=== PATIENT | male | born 1980 | race Caucasian/White ===

== ENCOUNTER 2018-06-18 01:52 | Observation (INO) | payer MEDICARE, SELFPAY ==
[2018-06-18] VITALS (13 sets, daily range): BP systolic 96–140; BP diastolic 50–79; PULSE 58–84; RESP 16–18; TEMP 36.6–37.2; O2SAT 93–100; BMI 32.4; BMI 32.5
--- NOTE | 2018-06-18 03:07 | PCM.HP.STD ---
Problem List (1) Chest pain Status: Acute Qualifiers: Chest pain type: unspecified Qualified Code(s): R07.9 - Chest pain, unspecified (2) Cardiac enzymes elevated Status: Acute (3) HLD (hyperlipidemia) Status: Chronic Qualifiers: Hyperlipidemia type: pure hypercholesterolemia Qualified Code(s): E78.00 - Pure hypercholesterolemia, unspecified; E78.0 - Pure hypercholesterolemia (4) Diabetes mellitus, type II Status: Chronic Qualifiers: Diabetes mellitus buttermaker helper insulin use: without buttermaker helper use Diabetes mellitus complication status: with unspecified complications Qualified Code(s): E11.8 - Type 2 diabetes mellitus with unspecified complications (5) LAM (nonalcoholic steatohepatitis) Status: Chronic (6) Anxiety and depression Status: Chronic (7) History of pericarditis Status: Chronic (8) CAD (coronary artery disease) Status: Chronic Qualifiers: Coronary Disease-Associated Artery/Lesion type: unspecified vessel or lesion type [place] vs. transplanted heart: unspecified whether [place] or transplanted heart Associated angina: angina presence unspecified Qualified Code(s): I25.10 - Atherosclerotic heart disease of [place] coronary artery without angina pectoris (9) Tobacco use Status: Acute History of Present Illness Date of Admission: 06/18/18 Chief Complaint: Chest pain The patient is a 37 y/o M w/ PMHx: HLD, SONIA with ~ sleep study 3 months prior unremarkable not using CPAP, Obesity, Tobacco use, LAM, Anxiety and Depression/?Bipolar disorder, Hx Pericarditis, CAD w/ no PCI history, Mild-Moderate Carotid Disease reported per patient who presents to the [facility] as direct admission from [facility] ED on 06/18/18 with history of onset at approximately 9:35 PM primarily right sided squeezing chest discomfort which progressively worsened while laying watching sports rated 10 out of 10 with associated nausea without emesis, dyspnea, diaphoresis as well as radiation of the discomfort into his throat with concurrent intermittent jabbing sensation with self administration NG w/ improvement to 03/26 and upon [facility] transition 01/24. He notes history of coronary disease w/ comment per his Lodging Manager Dr. Javier prior that he should be considered for PCI x 2; however, decision eventually for medication management and recently transitioned to Dr. Gomez. He also notes that he was supposed to have a cardiac stress test this upcoming Tuesday secondary to recent carotid ultrasounds which demonstrated mild disease. OSH ED evaluation included T 37.6, heart rate 88, BP 117/74, respiratory rate 20, 96% on room air, CBC with W BC 12.6, hemoglobin 18.5, platelet 186 without shift, BMP with sodium 136, potassium 4.1, chloride 99, bicarb 24, BUN/Cr 15/0.81, glucose 255, troponin 0 0.051, chest x-ray unremarkable, EKG with sinus rhythm with noted similar appearance to prior EKGs with diffuse mild ST segment elevation and J waves in V3 and V4 consistent with early repolarization pattern noted as stated on prior EKGs. At outside hospital patient was administered aspirin therapy. Past Medical History Past Medical History (Chronic Problems): Chronic Problems HLD (hyperlipidemia) (Chronic) Diabetes mellitus, type II (Chronic) LAM (nonalcoholic steatohepatitis) (Chronic) Anxiety and depression (Chronic) History of pericarditis (Chronic) CAD (coronary artery disease) (Chronic) Allergies Iodinated Contrast- Oral and IV Dye [CONTRASTS] Adverse Reaction (Verified 06/18/18 01:58) Nausea/Vom/Diarrhea SHRIMP Allergy (Uncoded 04/01/17 10:14) Swelling PLASTIC TAPE ADHESIVE Adverse Reaction (Uncoded 04/01/17 10:14) Rash Home Medications: Ambulatory Orders Medication Instructions Recorded Lorazepam [Ativan] 0.5 mg PO QHS 05/21/14 Vilazodone Hydrochloride [Viibryd] 40 mg PO DAILY 05/21/14 Lamotrigine [Lamictal] 150 mg PO QHS 02/20/16 Metformin HCl [Glucophage] 500 mg PO BIDCM 02/20/16 Nitroglycerin [Nitrostat] 0.4 mg SUBLINGUAL Q5M PRN 02/20/16 glipiZIDE [Glucotrol] 10 mg PO DAILY@0730 02/20/16 Albuterol Inhaler [Ventolin Hfa] 1 - 2 puff INHALATION Q4H PRN PRN 06/25/16 Trazodone HCl 50 - 100 mg PO QHS 04/01/17 Aspirin [Aspirin, Baby] 81 mg PO DAILY@0800 06/18/18 Ibuprofen 600 mg PO Q6H PRN 06/18/18 Insulin Detemir [Levemir] 18 unit SQ BREAKFAST 06/18/18 Simvastatin [Zocor] 10 mg PO QHS 06/18/18 Surgical History: - - Right wrist surgery, right knee arthroscopic surgery and meniscal repair, cholecystectomy, appendectomy. Psychiatric History: Anxiety, Depression Lives: Spouse/ Significant Other, With Family Smoking Status: Current every day smoker Tobacco Use: Cigarettes - Cigarette tobacco usage 1-1.5 pack per day since youth. Alcohol: None Drugs: None - *Family History Maternal History Items: - - Patient notes a maternal family history of psychiatric disease as well as heart disease. Paternal History Items: - - Patient with a paternal family history of cancer, heart disease with [place] history, diabetes. Review of Systems Constitutional: Reports: Fatigue. Denies: Chills, Fever, Weight Change HEENT: Denies: Head Aches, Sinus Congestion, Sinus Drainage Cardiovascular: Reports: Chest Pain, Chest Pressure. Denies: Edema, Light Headedness, Orthopnea, Palpitations, Syncope Respiratory: Reports: Shortness of Breath. Denies: Cough, Shortness of breath at rest, Shortness of breath upon exertion, Sputum production, Wheezing Gastrointestinal: Reports: Nausea. Denies: Abdominal Pain, Vomiting Genitourinary: Denies: Dysuria Musculoskeletal: Denies: Joint Pain, Joint Tenderness Skin: Denies: Rash, Wounds Neurological: Denies: Numbness, Tingling, Focal weakness Psychiatric: Reports: Anxiety, Depression. Denies: Homicidal Ideations, Suicidal Ideations Hematologic/ Lymphatic: Denies: Easy Bruising, Easy Bleeding VTE Information - Inpt Only VTE Present on Admission: No VTE Mechan Device Prophylaxis: SCD's VTE Pharm Prophylaxis ordered?: Yes Patient Problems: Active and Suspected Problems Chest pain (Acute) Cardiac enzymes elevated (Acute) Tobacco use (Acute) Subjective: Seated upright in the bed, no acute distress, notes still having discomfort but comfortable appearing. Objective: Physical Examination: General: awake, alert, oriented x 3 and cooperative, seated upright in bed in no apparent distress, notes still having chest discomfort. Skin: normal color, turgor, no icterus, cyanosis. HEENT: AT/NC, EOMI, PERRLA, MMM, no carotid bruits or JVD noted. Lungs: CTA bilaterally, moderate effort, mild decrease BL bases, no rales, ronchi or wheezing. Heart: Regular rate and rhythm; no gallop, rub audible. Abdomen: soft, obese, NTTP, ND, normal BS, no HSM. Extremities: no cyanosis, clubbing, or edema. Neurological: patient awake, alert, oriented x 3; cognitive function intact; pupils equally reactive to light and accomodation; cranial nerves II-XII grossly normal, moving all 4 extremities, no focal deficits, strength mildly globally decreased. Psychiatric: affect appears fatigued, no acute evidence of depressive or anxiety feelings. - Physical Exam Vital Signs Temp Pulse Resp BP Pulse Ox 97.8 F 69 18 140/79 H 97 06/18/18 02:14 06/18/18 02:27 06/18/18 02:14 06/18/18 02:14 06/18/18 02:14 Oxygen Delivery Method Room Air Weight: 226 lb 3.108 oz Body Mass Index (BMI) 32.4 Finger Stick Blood Glucose 149 Laboratory Tests Past 24 Hrs 06/18/18 06/18/18 06/18/18 02:47 02:47 02:47 WBC Pending RBC Pending Hgb Pending Hct Pending MCV Pending MCH Pending MCHC Pending RDW Pending RDW Differential Pending Plt Count Pending Sodium Pending Potassium Pending Chloride Pending Carbon Dioxide Pending Anion Gap Pending BUN Pending Creatinine Pending Est GFR (MDRD) Af Amer Pending Est GFR (MDRD) Non-Af Pending BUN/Creatinine Ratio Pending Glucose Pending Calcium Pending Magnesium Pending Total Bilirubin Pending AST Pending ALT Pending Alkaline Phosphatase Pending Troponin I Pending Total Protein Pending Albumin Pending Triglycerides Pending Cholesterol Pending LDL Cholesterol Pending VLDL Cholesterol Pending HDL Cholesterol Pending Assessment/Plan All Active Problems Chest pain (Acute) Cardiac enzymes elevated (Acute) Tobacco use (Acute) The patient is a 37 y/o M w/ PMHx: HLD, SONIA with ~ sleep study 3 months prior unremarkable not using CPAP, Obesity, Tobacco use, LAM, Anxiety and Depression/?Bipolar disorder, Hx Pericarditis, CAD w/ no PCI history, Mild-Moderate Carotid Disease reported per patient who presents to the [facility] as direct admission from [facility] ED on 06/18/18 with history of onset at approximately 9:35 PM primarily right sided squeezing chest discomfort which progressively worsened while laying watching sports rated 10 out of 10 with associated nausea without emesis, dyspnea, diaphoresis as well as radiation of the discomfort into his throat with concurrent intermittent jabbing sensation with self administration NG w/ improvement to 03/26 and upon [facility] transition 01/24. (1) Chest Pain w/ indeterminate cardiac enzymes: EKG in OSH ED with chronic changes similar to prior, CXR w/ no acute findings, initial trop 0.051. Will admit to PCU, place on a monitored bed to assure no acute myocardial infarction with serial cardiac enzymes and EKGs. Given that patient trop is minimally elevated above baseline level, will plan to continue to trend and if remains similar would continue w/ plan for nuclear stress testing on 06/20/18. If enzyme increases or ongoing pain would plan Cardiology evaluation. ASA, NG, morphine. FLP in AM. Mag pending. (2) Elevated BP without HTN Dx: BP above goal upon presentation to [facility], normal at OSH ED, will continue to monitor, initiate low dose BB given unclear CAD history, PRN agents if needed. Will need to continue to trend and assess if agent needed. (3) CAD: Unclear CAD history, notes was told he may need PCI prior, but has only been medically managed. Will continue home regimen asa, statin, add low dose BB. (4) LAM: Encouraged continued evaluation with his PCP and trending of his enzymes, encouraged continued avoidance of EtOH intake. (5) Hyperlipidemia: Continue home statin regimen. AM FLP. (6) Tobacco Abuse: Encouraged cessation, inpatient consultation per RT, NR as patient notes he could not tolerate avoidance. (7) Obesity: Weight loss and lifestyle changes encouraged. (8) Anxiety and Depression/? Bipolar disorder: Continue home psychiatric regimen. (9) Asthma: Denies COPD history, encourage HOB, IS, PRN albuterol. (10) Patient reported Carotid Disease: Notes recent carotid US with mild disease, no intervention needed per his report. (11) Hx Pericarditis: EKG w/ chronic changes, ESR and CRP pending as noted given atypical presentation. Continue treatment as noted #1. (12) GERD: Famotidine. (13) Hx SONIA: Patient states did not utilize CPAP prior but did have repeat SONIA assessment 3 months ago and states he was told he no longer had sleep apnea. (14) DVT prophylaxis: SCD, Lovenox. Code Visit OBSV E&M: 55998 Initial observation care L3
[2018-06-18 03:13] LABS: Hematocrit 46.6 % (40-54); Mean Corpuscular Hgb 31.6 pg (27.0-32.0); Mean Corpuscular Volume 84.6 fL (80-94); Mean Platelet Vol. 11.1 fl (6.2-12.0); Platelet Count 175 K/mm3 (150-450); RBC Distribution Width CV 12.4 % (11.6-14.6); RBC Distribution Width SD 38.2 fl (35.1-43.9); Red Blood Count 5.51 M/mm3 (4.6-6.2); White Blood Count 9.9 K/mm3 (4.4-11.0)
[2018-06-18 03:17] LABS: Hemoglobin 17.2 g/dl (13.0-16.5); Mean Corp Hgb Conc 36.1 g/gl (32-36); Scan Indicated on CBC? Y/N NO
--- NOTE | 2018-06-18 03:17 | HP.PCM_ITS ---
Problem List (1) Chest pain Status: Acute Qualifiers: Chest pain type: unspecified Qualified Code(s): R07.9 - Chest pain, unspecified (2) Cardiac enzymes elevated Status: Acute (3) HLD (hyperlipidemia) Status: Chronic Qualifiers: Hyperlipidemia type: pure hypercholesterolemia Qualified Code(s): E78.00 - Pure hypercholesterolemia, unspecified; E78.0 - Pure hypercholesterolemia (4) Diabetes mellitus, type II Status: Chronic Qualifiers: Diabetes mellitus terminal worker insulin use: without terminal worker use Diabetes mellitus complication status: with unspecified complications Qualified Code(s) : E11.8 - Type 2 diabetes mellitus with unspecified complications (5) LAM (nonalcoholic steatohepatitis) Status: Chronic (6) Anxiety and depression Status: Chronic (7) History of pericarditis Status: Chronic (8) CAD (coronary artery disease) Status: Chronic Qualifiers: Coronary Disease-Associated Artery/Lesion type: unspecified vessel or lesion type [place] vs. transplanted heart: unspecified whether [place] or transplanted heart Associated angina: angina presence unspecified Qualified Code(s): I25.10 - Atherosclerotic heart disease of [place] coronary artery without angina pectoris (9) Tobacco use Status: Acute History of Present Illness Date of Admission: 06/18/18 Chief Complaint: Chest pain The patient is a 37 y/o M w/ PMHx: HLD, SONIA with ~ sleep study 3 months prior unremarkable not using CPAP, Obesity, Tobacco use, LAM, Anxiety and Depression/ ?Bipolar disorder, Hx Pericarditis, CAD w/ no PCI history, Mild-Moderate Carotid Disease reported per patient who presents to the [facility] as direct admission from [facility] ED on 06/18/18 with history of onset at approximately 9:35 PM primarily right sided squeezing chest discomfort which progressively worsened while laying watching sports rated 10 out of 10 with associated nausea without emesis, dyspnea, diaphoresis as well as radiation of the discomfort into his throat with concurrent intermittent jabbing sensation with self administration NG w/ improvement to 03/26 and upon [facility] transition . He notes history of coronary disease w/ comment per his Admissions Manager Dr. Javier prior that he should be considered for PCI x 2; however, decision eventually for medication management and recently transitioned to Dr. Gomez. He also notes that he was supposed to have a cardiac stress test this upcoming Tuesday secondary to recent carotid ultrasounds which demonstrated mild disease. OSH ED evaluation included T 37.6, heart rate 88, BP 117/74, respiratory rate 20, 96% on room air, CBC with W BC 12.6, hemoglobin 18.5, platelet 186 without shift, BMP with sodium 136, potassium 4.1, chloride 99, bicarb 24, BUN/Cr 15/0.81, glucose 255, troponin 0 0.051, chest x-ray unremarkable, EKG with sinus rhythm with noted similar appearance to prior EKGs with diffuse mild ST segment elevation and J waves in V3 and V4 consistent with early repolarization pattern noted as stated on prior EKGs. At outside hospital patient was administered aspirin therapy. Past Medical History Past Medical History (Chronic Problems): Chronic Problems HLD (hyperlipidemia) (Chronic) Diabetes mellitus, type II (Chronic) LAM (nonalcoholic steatohepatitis) (Chronic) Anxiety and depression (Chronic) History of pericarditis (Chronic) CAD (coronary artery disease) (Chronic) Allergies Iodinated Contrast- Oral and IV Dye [CONTRASTS] Adverse Reaction (Verified 06/18 01:58) Nausea/Vom/Diarrhea SHRIMP Allergy (Uncoded 04/01/17 10:14) Swelling PLASTIC TAPE ADHESIVE Adverse Reaction (Uncoded 04/01/17 10:14) Rash Home Medications: Ambulatory Orders Medication Instructions Recorded Lorazepam [Ativan] 0.5 mg PO QHS 05/21/14 Vilazodone Hydrochloride [Viibryd] 40 mg PO DAILY 05/21/14 Lamotrigine [Lamictal] 150 mg PO QHS 02/20/16 Metformin HCl [Glucophage] 500 mg PO BIDCM 02/20/16 Nitroglycerin [Nitrostat] 0.4 mg SUBLINGUAL Q5M PRN 02/20/16 glipiZIDE [Glucotrol] 10 mg PO DAILY@0730 02/20/16 Albuterol Inhaler [Ventolin Hfa] 1 - 2 puff INHALATION Q4H PRN PRN 06/25/16 Trazodone HCl 50 - 100 mg PO QHS 04/01/17 Aspirin [Aspirin, Baby] 81 mg PO DAILY@0800 06/18/18 Ibuprofen 600 mg PO Q6H PRN 06/18/18 Insulin Detemir [Levemir] 18 unit SQ BREAKFAST 06/18/18 Simvastatin [Zocor] 10 mg PO QHS 06/18/18 Surgical History: - - Right wrist surgery, right knee arthroscopic surgery and meniscal repair, cholecystectomy, appendectomy. Psychiatric History: Anxiety, Depression Lives: Spouse/ Significant Other, With Family Smoking Status: Current every day smoker Tobacco Use: Cigarettes - Cigarette tobacco usage 1-1.5 pack per day since youth. Alcohol: None Drugs: None - *Family History Maternal History Items: - - Patient notes a maternal family history of psychiatric disease as well as heart disease. Paternal History Items: - - Patient with a paternal family history of cancer, heart disease with [place] history, diabetes. Review of Systems Constitutional: Reports: Fatigue. Denies: Chills, Fever, Weight Change HEENT: Denies: Head Aches, Sinus Congestion, Sinus Drainage Cardiovascular: Reports: Chest Pain, Chest Pressure. Denies: Edema, Light Headedness, Orthopnea, Palpitations, Syncope Respiratory: Reports: Shortness of Breath. Denies: Cough, Shortness of breath at rest, Shortness of breath upon exertion, Sputum production, Wheezing Gastrointestinal: Reports: Nausea. Denies: Abdominal Pain, Vomiting Genitourinary: Denies: Dysuria Musculoskeletal: Denies: Joint Pain, Joint Tenderness Skin: Denies: Rash, Wounds Neurological: Denies: Numbness, Tingling, Focal weakness Psychiatric: Reports: Anxiety, Depression. Denies: Homicidal Ideations, Suicidal Ideations Hematologic/ Lymphatic: Denies: Easy Bruising, Easy Bleeding VTE Information - Inpt Only VTE Present on Admission: No VTE Mechan Device Prophylaxis: SCD's VTE Pharm Prophylaxis ordered?: Yes Patient Problems: Active and Suspected Problems Chest pain (Acute) Cardiac enzymes elevated (Acute) Tobacco use (Acute) Subjective: Seated upright in the bed, no acute distress, notes still having discomfort but comfortable appearing. Objective: Physical Examination: General: awake, alert, oriented x 3 and cooperative, seated upright in bed in no apparent distress, notes still having chest discomfort. Skin: normal color, turgor, no icterus, cyanosis. HEENT: AT/NC, EOMI, PERRLA, MMM, no carotid bruits or JVD noted. Lungs: CTA bilaterally, moderate effort, mild decrease BL bases, no rales, ronchi or wheezing. Heart: Regular rate and rhythm; no gallop, rub audible. Abdomen: soft, obese, NTTP, ND, normal BS, no HSM. Extremities: no cyanosis, clubbing, or edema. Neurological: patient awake, alert, oriented x 3; cognitive function intact; pupils equally reactive to light and accomodation; cranial nerves II-XII grossly normal, moving all 4 extremities, no focal deficits, strength mildly globally decreased. Psychiatric: affect appears fatigued, no acute evidence of depressive or anxiety feelings. - Physical Exam Vital Signs Temp Pulse Resp BP Pulse Ox 97.8 F 69 18 140/79 H 97 06/18/18 02:14 06/18/18 02:27 06/18/18 02:14 06/18/18 02:14 06/18/18 02:14 Oxygen Delivery Method Room Air Weight: 226 lb 3.108 oz Body Mass Index (BMI) 32.4 Finger Stick Blood Glucose 149 Laboratory Tests Past 24 Hrs 06/18/18 06/18/18 06/18/18 02:47 02:47 02:47 WBC Pending RBC Pending Hgb Pending Hct Pending MCV Pending MCH Pending MCHC Pending RDW Pending RDW Differential Pending Plt Count Pending Sodium Pending Potassium Pending Chloride Pending Carbon Dioxide Pending Anion Gap Pending BUN Pending Creatinine Pending Est GFR (MDRD) Af Amer Pending Est GFR (MDRD) Non-Af Pending BUN/Creatinine Ratio Pending Glucose Pending Calcium Pending Magnesium Pending Total Bilirubin Pending AST Pending ALT Pending Alkaline Phosphatase Pending Troponin I Pending Total Protein Pending Albumin Pending Triglycerides Pending Cholesterol Pending LDL Cholesterol Pending VLDL Cholesterol Pending HDL Cholesterol Pending Assessment/Plan All Active Problems Chest pain (Acute) Cardiac enzymes elevated (Acute) Tobacco use (Acute) The patient is a 37 y/o M w/ PMHx: HLD, SONIA with ~ sleep study 3 months prior unremarkable not using CPAP, Obesity, Tobacco use, LAM, Anxiety and Depression/ ?Bipolar disorder, Hx Pericarditis, CAD w/ no PCI history, Mild-Moderate Carotid Disease reported per patient who presents to the [facility] as direct admission from [facility] ED on 06/18/18 with history of onset at approximately 9:35 PM primarily right sided squeezing chest discomfort which progressively worsened while laying watching sports rated 10 out of 10 with associated nausea without emesis, dyspnea, diaphoresis as well as radiation of the discomfort into his throat with concurrent intermittent jabbing sensation with self administration NG w/ improvement to 03/26 and upon [facility] transition . (1) Chest Pain w/ indeterminate cardiac enzymes: EKG in OSH ED with chronic changes similar to prior, CXR w/ no acute findings, initial trop 0.051. Will admit to PCU, place on a monitored bed to assure no acute myocardial infarction with serial cardiac enzymes and EKGs. Given that patient trop is minimally elevated above baseline level, will plan to continue to trend and if remains similar would continue w/ plan for nuclear stress testing on 06/20/18. If enzyme increases or ongoing pain would plan Cardiology evaluation. ASA, NG, morphine. FLP in AM. Mag pending. (2) Elevated BP without HTN Dx: BP above goal upon presentation to [facility], normal at OSH ED, will continue to monitor, initiate low dose BB given unclear CAD history, PRN agents if needed. Will need to continue to trend and assess if agent needed. (3) CAD: Unclear CAD history, notes was told he may need PCI prior, but has only been medically managed. Will continue home regimen asa, statin, add low dose BB. (4) LAM: Encouraged continued evaluation with his PCP and trending of his enzymes, encouraged continued avoidance of EtOH intake. (5) Hyperlipidemia: Continue home statin regimen. AM FLP. (6) Tobacco Abuse: Encouraged cessation, inpatient consultation per RT, NR as patient notes he could not tolerate avoidance. (7) Obesity: Weight loss and lifestyle changes encouraged. (8) Anxiety and Depression/? Bipolar disorder: Continue home psychiatric regimen. (9) Asthma: Denies COPD history, encourage HOB, IS, PRN albuterol. (10) Patient reported Carotid Disease: Notes recent carotid US with mild disease , no intervention needed per his report. (11) Hx Pericarditis: EKG w/ chronic changes, ESR and CRP pending as noted given atypical presentation. Continue treatment as noted #1. (12) GERD: Famotidine. (13) Hx SONIA: Patient states did not utilize CPAP prior but did have repeat SONIA assessment 3 months ago and states he was told he no longer had sleep apnea. (14) DVT prophylaxis: SCD, Lovenox. Code Visit OBSV E&M: 77106 Initial observation care L3
[2018-06-18 03:26] LABS: BUN 14 mg/dL (7-18); Creatinine, Serum 0.94 mg/dL (0.70-1.30); Glucose 194 mg/dL (74-106)
[2018-06-18 03:27] LABS: AST(SGOT) 21 U/L (15-37); Alanine Aminotransfer ALT/SGPT 52 U/L (16-61); Albumin, Serum 3.4 g/dL (3.2-5.0); Alkaline Phosphatase 73 U/L (45-117); Anion Gap 14 (5-15); BUN/Creat Ratio 14.9 RATIO (10-20); Chloride 104 mmol/L (98-107); Cholesterol 182 mg/dL (200); EST Glomerular Filtration Rate 95 mL/min (>60); Est Glom Filt Rate - Afr Amer 116 mL/min (>60); Globulin 3.5 g/dL (2.2-4.2); High Density Lipoprotein 16 mg/dL; Protein, Total 6.9 g/dL (6.4-8.2); Sodium Level 140 mmol/L (136-145); Triglycerides 1138 mg/dL
[2018-06-18 03:54] LABS: CRP 5.87 mg/L (0.0-3.0)
[2018-06-18 06:30] LABS: Erythrocyte Sedimentation Rate 3 mm/hr (0-15)
[2018-06-18] MEDS: Aspirin E.C. 81 MG Tablet PO (08:16)
[2018-06-18] MEDS: Carvedilol 3.125 MG TABLET PO ×2 (10:33→21:00)
--- NOTE | 2018-06-18 11:14 | PCM.PN.HOSP ---
Patient Problems: Active and Suspected Problems Chest pain (Acute) Cardiac enzymes elevated (Acute) Tobacco use (Acute) Subjective: Patient seen and examined. Admitted from [facility] with complaint of chest pain and indeterminate troponin. Troponin was 0.0 0.5. He has no complaints now and chest pain has resolved. He denies any fever chills, cough or chest pain, shortness of breath, abdominal pain, diarrhea vomiting. 12 point review of systems otherwise negative. Labs and vitals reviewed. Vitals/I&O's: Vital Signs Temp Pulse Resp BP Pulse Ox 98.9 F 84 18 120/63 97 06/18/18 06:31 06/18/18 08:01 06/18/18 06:31 06/18/18 06:31 06/18/18 06:46 Oxygen Delivery Method Room Air Weight: 226 lb 3.108 oz Body Mass Index (BMI) 32.4 Finger Stick Blood Glucose 149 Intake and Output for Last 24 Hours 06/16/18 06/17/18 06/18/18 23:59 23:59 23:59 Intake Total 220 / 220 Balance 220 / 220 General: Alert, Oriented x3, Cooperative, No apparent distress HEENT: Atraumatic, PERRLA, EOMI, Normocephalic Oral: Moist Mucosa Neck: Supple, No JVD, Negative Carotid Bruits Lungs: Clear to auscultation, Normal air movement, No rhonchi, No wheeze, No rales Cardiovascular: Regular rate, Regular Rhythm, Normal S1, Normal S2, No murmurs Abdomen: Bowel Sounds Present, Soft, Non Tender, Non-Distended, No Hepato-splenomegaly Extremities: No clubbing, No cyanosis, No edema, Capillary Refill Less than 3 Seconds Skin: No rashes, No breakdown Musculoskeletal: No Tenderness to Palpation of Joints or Extremities Lymphatic: No Cervical, Supraclavicular, or Inguinal Adenopathy Neurological: Cranial nerves II-XII grossly intact, Neuro grossly intact, Motor Exam 5/5 strength throughout Psych/Mental Status: Normal Affect, Appropriate, Alert and oriented to time, place, person, mood and affect Laboratory Results 06/18/18 02:47: Magnesium 2.0, Troponin I < 0.015 06/18/18 02:47: WBC 9.9, RBC 5.51, Hgb 17.2 H, Hct 46.6, MCV 84.6, MCH 31.6, MCHC 36.1 H, RDW 12.4, RDW Differential 38.2, Plt Count 175, MPV 11.1 06/18/18 02:47: Sodium 140, Potassium 4.0, Chloride 104, Carbon Dioxide 22.0, Anion Gap 14, BUN 14, Creatinine 0.94, Estim Creat Clear Calc 111.10, Est GFR (MDRD) Af Amer 116, Est GFR (MDRD) Non-Af 95, BUN/Creatinine Ratio 14.9, Glucose 194 H, Calcium 8.0 L, Total Bilirubin 1.80 H, AST 21, ALT 52, Alkaline Phosphatase 73, Total Protein 6.9, Albumin 3.4, Globulin 3.5, Albumin/Globulin Ratio 1.0, Triglycerides 1138 H, Cholesterol 182, LDL Cholesterol TNP, VLDL Cholesterol TNP, HDL Cholesterol 16 L 06/18/18 02:47: ESR 3 06/18/18 02:47: C-React Prot Ext Range 5.87 H 06/18/18 05:23: Troponin I < 0.015 06/18/18 08:37: Troponin I < 0.015 Current Medications Acetaminophen (Tylenol) 650 mg PO Q6H PRN PRN PRN Reason: Non-cardiac pain (mod-severe) Hydrocodone Bitart/Acetaminophen ([place] 5mg-325mg) 1 - 2 tablet PO Q6H PRN PRN PRN Reason: Moderate-severe pain Al Hydroxide/Mg Hydroxide (Mylanta Ii) 30 ml PO Q6H PRN PRN PRN Reason: Gastric burning Albuterol Sulfate (Ventolin Aerosols) 2.5 mg INHALATION Q2H PRN PRN PRN Reason: dyspnea, wheezing Aspirin (Ecotrin) 81 mg PO DAILY@0800 [facility] Last Admin: 06/18/18 08:16 Dose: 81 mg Atorvastatin Calcium (Lipitor) 5 mg PO QHS [facility] Carvedilol (Coreg) 3.125 mg PO BID [facility] Last Admin: 06/18/18 10:33 Dose: 3.125 mg Enoxaparin Sodium (Lovenox) 40 mg SC DAILY@1000 [facility] Last Admin: 06/18/18 08:15 Dose: Not Given Famotidine (Pepcid) 20 mg PO BID [facility] Last Admin: 06/18/18 08:15 Dose: Not Given Fluticasone Propionate (Flonase Nasal [place]) 2 spray NASAL DAILY [facility] Last Admin: 06/18/18 08:15 Dose: Not Given Glipizide (Glucotrol) 10 mg PO DAILY@0730 [facility] Sodium Chloride () 1,000 mls @ 100 mls/hr IV .Q10H [facility] Insulin Glargine (Lantus (Bk)) 18 units SC BREAKFAST [facility] Last Admin: 06/18/18 08:03 Dose: 18 units Insulin Human Lispro (Humalog Kwikpen (Bk)) 0 unit SC ACHS [facility] PRN Reason: Protocol Last Admin: 06/18/18 08:11 Dose: Not Given Lamotrigine (Lamictal) 150 mg PO QHS [facility] Lorazepam (Ativan) 0.5 mg PO QHS [facility] Magnesium Hydroxide (Milk Of Magnesia) 30 ml PO DAILY PRN PRN Reason: Constipation Morphine Sulfate () 1 - 2 mg IV Q4H PRN PRN PRN Reason: PAIN Nicotine (Nicoderm Cq (Pbkc)) 21 mg TRANSDERM. DAILY [facility] Last Admin: 06/18/18 06:34 Dose: Not Given Nitroglycerin (Nitrostat) 0.4 mg SUBLINGUAL Q5M PRN PRN Reason: CHEST PAIN Ondansetron HCl (Zofran) 4 mg IV Q8H PRN PRN PRN Reason: NAUSEA Promethazine HCl (Phenergan) 12.5 mg IV Q6H PRN PRN PRN Reason: NAUSEA/VOMITING Sodium Chloride () 5 - 30 ml IV UD PRN PRN Reason: SALINE FLUSH Temazepam (Restoril) 15 mg PO QHS PRN PRN PRN Reason: insomnia Trazodone HCl (Desyrel) 50 mg PO QHS RAS Vilazodone HCl (Viibryd) 20 mg PO DAILY [facility] Medical Necessity - Tobacco Use Smoking Status: Current every day smoker Tobacco Use: Cigarettes Assessment/Plan All Active Problems Chest pain (Acute) Cardiac enzymes elevated (Acute) Tobacco use (Acute) 1. Atypical chest pain chest pain has now resolved. has a history of pericarditis and CAD initial troponin in [facility] was 0.051. Troponin x 3 in [facility] was <0.015 EKG showed no acute ST changes CXR showed no acute cardiopulmonary process on aspirin and SL nitroglycerin for stress test- to be done 06/20 due to holiday weekend. Lipid panel: cholesterol of 182 and TGs of 1138. HDL was 16. Unable to check LDL o'/a of elevated TGs on moderate intensity simvastatin. WIll stop,a nd start PO atorvastatin 40mg qhs 2. Elevated BP BP was 140/69 on admission no known history of HTN. Started on low dose beta fredi. 3. LAM: follow up with PCP. avoid alcohol. 4. Hyperlipemia: lipid panel as stated above. Started on atorvastatin 40mg qhs; will start fenofibrate on account of elevated triglycerides. 5. Nicotine dependence: counselled to quit. Nicotine patch 21mg daily. 6. CAD: says he has CAD. follows up with Dr Gomez. Unclear whether he has had PCI before. On aspirin, statin. low dose beta fredi added. 7. History of pericarditis: CRP is slightly to around 5. ESR is however normal. EKG showed chronic changes consistent with pericarditis. We will continue monitoring. 8. Asthma: On breathing treatments. Incentive spirometry. 9. Anxiety and depression: Continue current medication. DVT prophylaxis:;lovenox Code status: full code This note was generated with [employer] software. It may contain incorrect words, spelling, and punctuation that were not noted in checking the note before signing. Code Visit OBSV E&M: 57744 Subsequent observation care L2
--- NOTE | 2018-06-18 11:19 | PN_ITS ---
Patient Problems: Active and Suspected Problems Chest pain (Acute) Cardiac enzymes elevated (Acute) Tobacco use (Acute) Subjective: Patient seen and examined. Admitted from [place] with complaint of chest pain and indeterminate troponin. Troponin was 0.0 0.5. He has no complaints now and chest pain has resolved. He denies any fever chills, cough or chest pain, shortness of breath, abdominal pain, diarrhea vomiting. 12 point review of systems otherwise negative. Labs and vitals reviewed. Vitals/I&O's: Vital Signs Temp Pulse Resp BP Pulse Ox 98.9 F 84 18 120/63 97 06/18/18 06:31 06/18/18 08:01 06/18/18 06:31 06/18/18 06:31 06/18/18 06:46 Oxygen Delivery Method Room Air Weight: 226 lb 3.108 oz Body Mass Index (BMI) 32.4 Finger Stick Blood Glucose 149 Intake and Output for Last 24 Hours 06/16/18 06/17/18 06/18/18 23:59 23:59 23:59 Intake Total 220 / 220 Balance 220 / 220 General: Alert, Oriented x3, Cooperative, No apparent distress HEENT: Atraumatic, PERRLA, EOMI, Normocephalic Oral: Moist Mucosa Neck: Supple, No JVD, Negative Carotid Bruits Lungs: Clear to auscultation, Normal air movement, No rhonchi, No wheeze, No rales Cardiovascular: Regular rate, Regular Rhythm, Normal S1, Normal S2, No murmurs Abdomen: Bowel Sounds Present, Soft, Non Tender, Non-Distended, No Hepato- splenomegaly Extremities: No clubbing, No cyanosis, No edema, Capillary Refill Less than 3 Seconds Skin: No rashes, No breakdown Musculoskeletal: No Tenderness to Palpation of Joints or Extremities Lymphatic: No Cervical, Supraclavicular, or Inguinal Adenopathy Neurological: Cranial nerves II-XII grossly intact, Neuro grossly intact, Motor Exam 5/5 strength throughout Psych/Mental Status: Normal Affect, Appropriate, Alert and oriented to time, place, person, mood and affect Laboratory Results 06/18/18 02:47: Magnesium 2.0, Troponin I < 0.015 06/18/18 02:47: WBC 9.9, RBC 5.51, Hgb 17.2 H, Hct 46.6, MCV 84.6, MCH 31.6, MCHC 36.1 H, RDW 12.4, RDW Differential 38.2, Plt Count 175, MPV 11.1 06/18/18 02:47: Sodium 140, Potassium 4.0, Chloride 104, Carbon Dioxide 22.0, Anion Gap 14, BUN 14, Creatinine 0.94, Estim Creat Clear Calc 111.10, Est GFR ( MDRD) Af Amer 116, Est GFR (MDRD) Non-Af 95, BUN/Creatinine Ratio 14.9, Glucose 194 H, Calcium 8.0 L, Total Bilirubin 1.80 H, AST 21, ALT 52, Alkaline Phosphatase 73, Total Protein 6.9, Albumin 3.4, Globulin 3.5, Albumin/Globulin Ratio 1.0, Triglycerides 1138 H, Cholesterol 182, LDL Cholesterol TNP, VLDL Cholesterol TNP, HDL Cholesterol 16 L 06/18/18 02:47: ESR 3 06/18/18 02:47: C-React Prot Ext Range 5.87 H 06/18/18 05:23: Troponin I < 0.015 06/18/18 08:37: Troponin I < 0.015 Current Medications Acetaminophen (Tylenol) 650 mg PO Q6H PRN PRN PRN Reason: Non-cardiac pain (mod-severe) Hydrocodone Bitart/Acetaminophen ([place] 5mg-325mg) 1 - 2 tablet PO Q6H PRN PRN PRN Reason: Moderate-severe pain Al Hydroxide/Mg Hydroxide (Mylanta Ii) 30 ml PO Q6H PRN PRN PRN Reason: Gastric burning Albuterol Sulfate (Ventolin Aerosols) 2.5 mg INHALATION Q2H PRN PRN PRN Reason: dyspnea, wheezing Aspirin (Ecotrin) 81 mg PO DAILY@0800 [facility] Last Admin: 06/18/18 08:16 Dose: 81 mg Atorvastatin Calcium (Lipitor) 5 mg PO QHS [facility] Carvedilol (Coreg) 3.125 mg PO BID [facility] Last Admin: 06/18/18 10:33 Dose: 3.125 mg Enoxaparin Sodium (Lovenox) 40 mg SC DAILY@1000 [facility] Last Admin: 06/18/18 08:15 Dose: Not Given Famotidine (Pepcid) 20 mg PO BID [facility] Last Admin: 06/18/18 08:15 Dose: Not Given Fluticasone Propionate (Flonase Nasal [place]) 2 spray NASAL DAILY [facility] Last Admin: 06/18/18 08:15 Dose: Not Given Glipizide (Glucotrol) 10 mg PO DAILY@0730 [facility] Sodium Chloride () 1,000 mls @ 100 mls/hr IV .Q10H [facility] Insulin Glargine (Lantus (Bk)) 18 units SC BREAKFAST [facility] Last Admin: 06/18/18 08:03 Dose: 18 units Insulin Human Lispro (Humalog Kwikpen (Bk)) 0 unit SC ACHS [facility] PRN Reason: Protocol Last Admin: 06/18/18 08:11 Dose: Not Given Lamotrigine (Lamictal) 150 mg PO QHS [facility] Lorazepam (Ativan) 0.5 mg PO QHS [facility] Magnesium Hydroxide (Milk Of Magnesia) 30 ml PO DAILY PRN PRN Reason: Constipation Morphine Sulfate () 1 - 2 mg IV Q4H PRN PRN PRN Reason: PAIN Nicotine (Nicoderm Cq (Pbkc)) 21 mg TRANSDERM. DAILY [facility] Last Admin: 06/18/18 06:34 Dose: Not Given Nitroglycerin (Nitrostat) 0.4 mg SUBLINGUAL Q5M PRN PRN Reason: CHEST PAIN Ondansetron HCl (Zofran) 4 mg IV Q8H PRN PRN PRN Reason: NAUSEA Promethazine HCl (Phenergan) 12.5 mg IV Q6H PRN PRN PRN Reason: NAUSEA/VOMITING Sodium Chloride () 5 - 30 ml IV UD PRN PRN Reason: SALINE FLUSH Temazepam (Restoril) 15 mg PO QHS PRN PRN PRN Reason: insomnia Trazodone HCl (Desyrel) 50 mg PO QHS RAS Vilazodone HCl (Viibryd) 20 mg PO DAILY [facility] Medical Necessity - Tobacco Use Smoking Status: Current every day smoker Tobacco Use: Cigarettes Assessment/Plan All Active Problems Chest pain (Acute) Cardiac enzymes elevated (Acute) Tobacco use (Acute) 1. Atypical chest pain * chest pain has now resolved. * has a history of pericarditis and CAD * initial troponin in [facility] was 0.051. Troponin x 3 in [facility] was < 0.015 * EKG showed no acute ST changes * CXR showed no acute cardiopulmonary process * on aspirin and SL nitroglycerin * for stress test- to be done 06/20 due to holiday weekend. * Lipid panel: cholesterol of 182 and TGs of 1138. HDL was 16. Unable to check LDL o'/a of elevated TGs * on moderate intensity simvastatin. WIll stop,a nd start PO atorvastatin 40mg qhs * 2. Elevated BP * BP was 140/69 on admission * no known history of HTN. Started on low dose beta fredi. * 3. LAM: follow up with PCP. avoid alcohol. 4. Hyperlipemia: lipid panel as stated above. Started on atorvastatin 40mg qhs; will start fenofibrate on account of elevated triglycerides. 5. Nicotine dependence: counselled to quit. Nicotine patch 21mg daily. 6. CAD: says he has CAD. follows up with Dr Gomez. Unclear whether he has had PCI before. On aspirin, statin. low dose beta fredi added. 7. History of pericarditis: CRP is slightly to around 5. ESR is however normal. EKG showed chronic changes consistent with pericarditis. We will continue monitoring. 8. Asthma: On breathing treatments. Incentive spirometry. 9. Anxiety and depression: Continue current medication. DVT prophylaxis:;lovenox Code status: full code This note was generated with [employer] software. It may contain incorrect words, spelling, and punctuation that were not noted in checking the note before signing. Code Visit OBSV E&M: 29184 Subsequent observation care L2
[2018-06-18] MEDS: glipiZIDE 5 MG Tablet 10 MG PO (11:41)
[2018-06-18] MEDS: VILAZODONE HYDROCHLORIDE 10 MG TABLET 40 MG PO (11:42)
[2018-06-18 11:55] LABS: Bedside Glucose 201 mg/dL (70-110)
[2018-06-18] MEDS: Fenofibrate 48 MG Tablet PO (14:11)
[2018-06-18] MEDS: Acetaminophen 325 MG Tablet 650 MG PO (14:41)
[2018-06-18 16:11] LABS: Bedside Glucose 162 mg/dL (70-110)
[2018-06-18] MEDS: LORazepam 0.5 MG Tablet PO (21:00)
[2018-06-18] MEDS: Atorvastatin Calcium 40 MG Tablet PO (21:00)
[2018-06-18] MEDS: Famotidine 20 MG Tablet PO (21:00)
[2018-06-18] MEDS: Insulin Lispro 100 UNIT/ML INSULN.PEN SC (21:00)
[2018-06-18] MEDS: lamoTRIgine 150 MG Tablet PO (21:00)
[2018-06-18 21:45] LABS: Bedside Glucose 247 mg/dL (70-110)
[2018-06-19] VITALS (18 sets, daily range): BP systolic 108–144; BP diastolic 61–87; PULSE 61–91; RESP 16–21; TEMP 36.1–36.8; O2SAT 93–98
[2018-06-19 00:41] LABS: Bedside Glucose 181 mg/dL (70-110)
--- NOTE | 2018-06-19 06:33 | NURSING ---
Pt. woke up about 0615 went to the bathroom and started having Left arm pain 7/10 and sternal chest pain and tightness. This nurse applied 2L o2, called respiratory for STAT EKG, obtained order for Cardiac enzymes and distributed 1 dose of nitro. Will reassess Vital signs and chest pain in 5 minutes.
[2018-06-19] MEDS: Morphine 2 MG/ML Syringe IV ×2 (06:42→20:40)
[2018-06-19 06:54] LABS: Absolute Lymphocyte Count 2.41 X10^3/ul (0.83-4.51); Absolute Neutrophil Count 4.6 X10^3/uL (2.0-7.7); Basophil# 0.05 X10^3/uL; Basophil% 0.6 % (0-1); Eosinophil# 0.48 X10^3/uL; Eosinophils% 5.9 % (0-5); Lymphocyte # 2.41 X10^3/ul (4.0); Lymphocyte % 29.5 % (19-41); Mean Corpuscular Hgb 30.7 pg (27.0-32.0); Mean Corpuscular Volume 85.2 fL (80-94); Mean Platelet Vol. 11.5 fl (6.2-12.0); Monocyte# 0.61 X10^3/uL; Monocyte% 7.5 % (0-10); Neutrophil # 4.59 X10^3/uL (2.7-7.7); Neutrophil % 56.3 % (47-70); Platelet Count 180 K/mm3 (150-450); RBC Distribution Width CV 12.9 % (11.6-14.6); RBC Distribution Width SD 39.6 fl (35.1-43.9); Red Blood Count 5.87 M/mm3 (4.6-6.2); White Blood Count 8.2 K/mm3 (4.4-11.0)
[2018-06-19 06:55] LABS: POSITIVE COUNT NO; POSITIVE DIFFERENTIAL NO; POSITIVE MORPHOLOGY NO
[2018-06-19] MEDS: Insulin Lispro 100 UNIT/ML INSULN.PEN SC ×4 (07:02→22:13)
--- NOTE | 2018-06-19 07:08 | NURSING ---
patient had 3 nitro tabs and 2mg of morphine with some relief pain in arm 5/10 wiht still some chest discomfort.
[2018-06-19 07:15] LABS: Bedside Glucose 158 mg/dL (70-110)
[2018-06-19 07:16] LABS: Anion Gap 6 (5-15); BUN 14 mg/dL (7-18); BUN/Creat Ratio 12.1 RATIO (10-20); Calcium,Total 8.7 mg/dL (8.5-10.1); Chloride 107 mmol/L (98-107); Creatinine, Serum 1.16 mg/dL (0.70-1.30); EST Glomerular Filtration Rate 75 mL/min (>60); Est Glom Filt Rate - Afr Amer 91 mL/min (>60); Estimated Creatinine Clearance 90.03 ml/min; Glucose 175 mg/dL (74-106); Potassium 4.4 mmol/L (3.5-5.1); Sodium Level 140 mmol/L (136-145)
[2018-06-19] MEDS: glipiZIDE 5 MG Tablet 10 MG PO (08:30)
[2018-06-19] MEDS: Aspirin E.C. 81 MG Tablet PO (08:34)
[2018-06-19] MEDS: Carvedilol 3.125 MG TABLET PO ×2 (10:11→22:13)
[2018-06-19] MEDS: Famotidine 20 MG Tablet PO ×2 (10:11→22:15)
[2018-06-19] MEDS: Fenofibrate 48 MG Tablet PO (10:11)
[2018-06-19] MEDS: VILAZODONE HYDROCHLORIDE 10 MG TABLET 40 MG PO (10:12)
[2018-06-19] MEDS: Enoxaparin 40 MG/0.4 ML Syringe SC (10:16)
[2018-06-19] MEDS: 0.9% Normal Saline 1,000 ML 100 ML IV ×2 (10:28→20:33)
--- NOTE | 2018-06-19 10:33 | PCM.PROGNOTE ---
<Lala Gudino - Last Filed: 06/19/18 11:14> Patient Problems: Active and Suspected Problems Chest pain (Acute) Cardiac enzymes elevated (Acute) Tobacco use (Acute) Subjective: Patient seen and examined. Denies further chest pain overnight. Denies other current complaints. - Physical Exam General: Alert, Oriented x3, Cooperative, No apparent distress HEENT: Atraumatic, PERRLA, EOMI, Normocephalic Neck: Supple, No JVD, Negative Carotid Bruits Lungs: Clear to auscultation, Normal air movement Cardiovascular: Regular rate, Regular Rhythm, Normal S1, Normal S2, No murmurs Abdomen: Bowel Sounds Present, Soft, Non Tender, Non-Distended Extremities: No clubbing, No cyanosis, No edema, Capillary Refill Less than 3 Seconds Skin: No rashes, No breakdown Musculoskeletal: No Tenderness to Palpation of Joints or Extremities Neurological: Cranial nerves II-XII grossly intact, Neuro grossly intact Psych/Mental Status: Normal Affect, Appropriate Vital Signs Temp Pulse Resp BP Pulse Ox 97 F L 78 16 113/64 93 06/19/18 06:29 06/19/18 07:49 06/19/18 07:09 06/19/18 07:09 06/19/18 07:09 Oxygen Flow Rate (L/min) 2 Oxygen Delivery Method Room Air Weight: 226 lb 3.108 oz Body Mass Index (BMI) 32.4 Finger Stick Blood Glucose 149 Intake and Output for Last 24 Hours 06/17/18 06/18/18 06/19/18 23:59 23:59 23:59 Intake Total 1660 / 1660 100 / 100 Balance 1660 / 1660 100 / 100 Laboratory Tests Past 24 Hrs 06/19/18 06/19/18 06/19/18 06:10 06:10 06:10 WBC 8.2 RBC 5.87 Hgb 18.0 H* Hct 50.0 MCV 85.2 MCH 30.7 MCHC 36.0 RDW 12.9 RDW Differential 39.6 Plt Count 180 MPV 11.5 Immature Gran % (Auto) 0.200 Neut % (Auto) 56.3 Lymph % (Auto) 29.5 [place] % (Auto) 7.5 Eos % (Auto) 5.9 H Baso % (Auto) 0.6 Absolute Neuts (auto) 4.6 Absolute Lymphs (auto) 2.41 Total Counted Not Reportable Diff Path Review May foll Sodium 140 Potassium 4.4 Chloride 107 Carbon Dioxide 27.0 Anion Gap 6 BUN 14 Creatinine 1.16 Estim Creat Clear Calc 90.03 Est GFR (MDRD) Af Amer 91 Est GFR (MDRD) Non-Af 75 BUN/Creatinine Ratio 12.1 Glucose 175 H Calcium 8.7 Troponin I < 0.015 06/19/18 09:30 WBC RBC Hgb Hct MCV MCH MCHC RDW RDW Differential Plt Count MPV Immature Gran % (Auto) Neut % (Auto) Lymph % (Auto) [place] % (Auto) Eos % (Auto) Baso % (Auto) Absolute Neuts (auto) Absolute Lymphs (auto) Total Counted Diff Path Review Sodium Potassium Chloride Carbon Dioxide Anion Gap BUN Creatinine Estim Creat Clear Calc Est GFR (MDRD) Af Amer Est GFR (MDRD) Non-Af BUN/Creatinine Ratio Glucose Calcium Troponin I Pending POC Glucose 06/19/18 06/18/18 06/18/18 07:01 20:52 16:04 POC Glucose 158 H 247 H 162 H 06/18/18 06/18/18 11:40 06:37 POC Glucose 201 H 181 H Medical Necessity - Tobacco Use Smoking Status: Current every day smoker Tobacco Use: Cigarettes Assessment/Plan All Active Problems Chest pain (Acute) Cardiac enzymes elevated (Acute) Tobacco use (Acute) 1. Chest pain-troponin reported to be 0.05 at outside facility ER. Troponin negative x3 during admission. EKG without ST-T changes. Per medical records, patient has had multiple ER visits with complaints of chest pain in which workup has been unremarkable. Chest x-ray on admission showed no acute cardiopulmonary process. Continue aspirin, statin. Plan for stress test in a.m. 2. CAD-patient reports history of CAD. Follows with Dr. Gomez. Per records, patient has never had a cath. Unclear history of CAD. Continue aspirin, statin. 3. History of pericarditis 4. Hypertension-not previously on regimen. Blood pressure mildly elevated on admission and patient was started on low-dose carvedilol 3.125 mg twice daily. Continue to monitor. 5. Hyperlipidemia-home statin regimen increased. Continue atorvastatin 40 mg nightly. Fenofibrate 48 mg p.o. daily added due to triglycerides 1138. 6. Type 2 diabetes [id number] before meals at bedtime with sliding scale insulin. Continue Lantus regimen. 7. LAM-patient educated on avoiding alcohol. Continue outpatient follow-up. 8. Tobacco dependence-encourage smoking cessation. Continue nicotine replacement patch. 9. Asthma-continue as needed albuterol aerosol. 10. Anxiety/depression-continue home regimen. 11. SONIA-continue CPAP nightly. DVT prophylaxis-Lovenox subcu. This patient was seen by TRISHA Angela under the supervision of Dr. Allred. <Patel Allred - Last Filed: 06/19/18 16:16> Subjective: Seen and examined. Patient had chest pain early in the morning which she said lasted for about 10-15 minutes. He was given 3 doses of sublingual nitrate. Serial troponin enzymes are negative. EKG shows normal sinus rhythm with no significant ST-T ischemic changes. - Physical Exam Lungs: Clear to auscultation, Normal air movement Cardiovascular: Regular rate, Regular Rhythm, Normal S1, Normal S2, No murmurs Vital Signs Temp Pulse Resp BP Pulse Ox 97.9 F 84 18 144/72 H 97 06/19/18 14:00 06/19/18 14:00 06/19/18 14:00 06/19/18 14:00 06/19/18 14:00 Oxygen Flow Rate (L/min) 2 Oxygen Delivery Method Room Air Weight: 226 lb 3.108 oz Body Mass Index (BMI) 32.4 Finger Stick Blood Glucose 149 Intake and Output for Last 24 Hours 06/17/18 06/18/18 06/19/18 23:59 23:59 23:59 Intake Total 1660 / 1660 460 / 460 Balance 1660 / 1660 460 / 460 Laboratory Tests Past 24 Hrs 06/19/18 06/19/18 06/19/18 06:10 06:10 06:10 WBC 8.2 RBC 5.87 Hgb 18.0 H* Hct 50.0 MCV 85.2 MCH 30.7 MCHC 36.0 RDW 12.9 RDW Differential 39.6 Plt Count 180 MPV 11.5 Immature Gran % (Auto) 0.200 Neut % (Auto) 56.3 Lymph % (Auto) 29.5 [place] % (Auto) 7.5 Eos % (Auto) 5.9 H Baso % (Auto) 0.6 Absolute Neuts (auto) 4.6 Absolute Lymphs (auto) 2.41 Total Counted Not Reportable Diff Path Review May foll D-Dimer Quant (PE/DVT) Sodium 140 Potassium 4.4 Chloride 107 Carbon Dioxide 27.0 Anion Gap 6 BUN 14 Creatinine 1.16 Estim Creat Clear Calc 90.03 Est GFR (MDRD) Af Amer 91 Est GFR (MDRD) Non-Af 75 BUN/Creatinine Ratio 12.1 Glucose 175 H Calcium 8.7 Troponin I < 0.015 06/19/18 06/19/18 06/19/18 09:30 12:15 14:30 WBC RBC Hgb Hct MCV MCH MCHC RDW RDW Differential Plt Count MPV Immature Gran % (Auto) Neut % (Auto) Lymph % (Auto) [place] % (Auto) Eos % (Auto) Baso % (Auto) Absolute Neuts (auto) Absolute Lymphs (auto) Total Counted Diff Path Review D-Dimer Quant (PE/DVT) < 0.27 L Sodium Potassium Chloride Carbon Dioxide Anion Gap BUN Creatinine Estim Creat Clear Calc Est GFR (MDRD) Af Amer Est GFR (MDRD) Non-Af BUN/Creatinine Ratio Glucose Calcium Troponin I < 0.015 < 0.015 POC Glucose 06/19/18 06/19/18 06/18/18 11:56 07:01 20:52 POC Glucose 189 H 158 H 247 H 06/18/18 06:37 POC Glucose 181 H Assessment/Plan This patient was seen in conjunction with Lala GARZA. I have independently interviewed and examined the patient and reviewed pertinent history, examination findings, laboratory and plan of management. I have reviewed the note and agree with the documented findings with the few additional points. In brief, patient is admitted for evaluation of chest pain. During hospital course, troponins and EKG are not suggestive of ischemic heart disease. Patient smokes one half pack cigarettes daily. D-dimer negative. patient follows Dr. Guerra and had a stress test in the past but never had cardiac cath. Scheduled for nuclear stress test tomorrow morning I have discussed my assessment with Lala GARZA and orders have been reviewed. Code Visit Inpatient E&M: 16921 Subs Hosp L2
[2018-06-19 12:10] LABS: Bedside Glucose 189 mg/dL (70-110)
[2018-06-19 14:58] LABS: D-Dimer Quantitative (DVT/PE) < 0.27 FEU/ug/m (0.27-0.49)
[2018-06-19] MEDS: oxyCODONE 5 MG Tablet PO (15:52)
[2018-06-19] MEDS: Acetaminophen 325 MG Tablet 650 MG PO (15:53)
[2018-06-19] MEDS: Albuterol 2.5 MG/3 ML VIAL.NEB. INHALATION (16:14)
[2018-06-19 17:11] LABS: Bedside Glucose 164 mg/dL (70-110)
[2018-06-19] MEDS: 0.9% NaCl Peripheral Flush Adult/Peds IV (20:41)
[2018-06-19] MEDS: LORazepam 0.5 MG Tablet PO (22:13)
[2018-06-19] MEDS: lamoTRIgine 150 MG Tablet PO (22:15)
[2018-06-19] MEDS: Atorvastatin Calcium 40 MG Tablet PO (22:15)
[2018-06-19 23:25] LABS: Bedside Glucose 182 mg/dL (70-110)
[2018-06-20] VITALS (8 sets, daily range): BP systolic 100–118; BP diastolic 53–72; PULSE 62–76; RESP 15–18; TEMP 36.5–36.9; O2SAT 95–97
[2018-06-20] MEDS: Aspirin E.C. 81 MG Tablet PO (05:50)
[2018-06-20] MEDS: 0.9% Normal Saline 1,000 ML 100 ML IV (06:39)
[2018-06-20 07:13] LABS: Absolute Lymphocyte Count 2.46 X10^3/ul (0.83-4.51); Absolute Neutrophil Count 4.8 X10^3/uL (2.0-7.7); Basophil# 0.08 X10^3/uL; Basophil% 0.9 % (0-1); Eosinophil# 0.62 X10^3/uL; Eosinophils% 7.2 % (0-5); Hematocrit 48.7 % (40-54); Hemoglobin 17.1 g/dl (13.0-16.5); Lymphocyte # 2.46 X10^3/ul (4.0); Lymphocyte % 28.5 % (19-41); Mean Corp Hgb Conc 35.1 g/gl (32-36); Mean Corpuscular Hgb 30.8 pg (27.0-32.0); Mean Corpuscular Volume 87.7 fL (80-94); Mean Platelet Vol. 11.1 fl (6.2-12.0); Monocyte# 0.64 X10^3/uL; Monocyte% 7.4 % (0-10); Neutrophil % 55.5 % (47-70); Platelet Count 152 K/mm3 (150-450); RBC Distribution Width CV 12.8 % (11.6-14.6); RBC Distribution Width SD 41.2 fl (35.1-43.9); Red Blood Count 5.55 M/mm3 (4.6-6.2); White Blood Count 8.6 K/mm3 (4.4-11.0)
[2018-06-20 07:21] LABS: POSITIVE COUNT NO; POSITIVE DIFFERENTIAL NO; POSITIVE MORPHOLOGY NO
[2018-06-20 07:22] LABS: International Normalized Ratio 1.1; Prothrombin Time (Protime)PT. 14.4 SECONDS (11.7-14.9)
[2018-06-20 07:23] LABS: Partial Thromboplast Time 26.3 Seconds (24.1-36.2)
[2018-06-20 07:33] LABS: Anion Gap 8 (5-15); BUN 15 mg/dL (7-18); BUN/Creat Ratio 13.4 RATIO (10-20); Calcium,Total 8.2 mg/dL (8.5-10.1); Chloride 107 mmol/L (98-107); Creatinine, Serum 1.12 mg/dL (0.70-1.30); EST Glomerular Filtration Rate 78 mL/min (>60); Est Glom Filt Rate - Afr Amer 95 mL/min (>60); Estimated Creatinine Clearance 93.24 ml/min; Glucose 138 mg/dL (74-106); Potassium 4.5 mmol/L (3.5-5.1); Sodium Level 144 mmol/L (136-145)
[2018-06-20 08:30] LABS: Bedside Glucose 151 mg/dL (70-110)
[2018-06-20] MEDS: Carvedilol 3.125 MG TABLET PO (10:45)
[2018-06-20] MEDS: Famotidine 20 MG Tablet PO (10:45)
[2018-06-20] MEDS: Fenofibrate 48 MG Tablet PO (10:45)
--- NOTE | 2018-06-20 11:33 | STRESSREP ---
Stress Test Report Date: 06/20/2018 Procedure: Pharmacologic stress nuclear imaging study Indications: Chest pain Consent: Per the patient Procedure: The patient underwent pharmacologic (Regadenoson) evaluation with a peak heart rate of 108 beats per minute (59 predicted maximal heart rate) and a peak blood pressure of 124/84 mmHg. The baseline ECG demonstrated normal sinus rhythm. The peak pharmacologic ECG demonstrated no obvious ECG changes. There were no cardiac dysrhythmias pretest, during pharmacologic infusion, or recovery. There was no complaint of chest discomfort during pharmacologic infusion or recovery. The examination was discontinued secondary to completion of protocol. Impression: 1. Pharmacologic (Regadenoson) evaluation 2. Peak pharmacologic ECG with no obvious G changes. 3. There were no cardiac dysrhythmias pretest, during pharmacologic infusion, or recovery 4. Nuclear images pending Myocardial perfusion imaging study: Technique: The patient was injected with 14.9 millicuries of technetium 99m Cardiolite and subsequently rest SPECT Cardiolite nuclear imaging was obtained in the horizontal long, vertical long, and short axis views. The patient underwent pharmacologic (Regadenoson) evaluation with a peak heart rate of 108 beats per minute (59 % percent predicted maximal heart rate) and a peak blood pressure of 124/84 mmHg. The patient was injected with 45 millicuries of technetium 99m Cardiolite and subsequently stress SPECT Cardiolite nuclear imaging was obtained in the horizontal long, vertical long, and short axis views. A gated Cardiolite study at peak stress was obtained. Interpretation: Rest and stress SPECT Cardiolite nuclear imaging status post realignment, normalization, and attenuation correction demonstrate at rest a small area of subtle diminished tracer uptake near the apical segments which appears to improve/normalize following stress. Following stress there appears to be relative uniform tracer uptake and myocardial perfusion appearing within normal limits. There is end systolic thickening and brightening. The gated Cardiolite study demonstrates myocardial thickening and inward wall motion. The reported LVEF is 62 %. Impression: 1. Rest and stress SPECT Cardiolite nuclear imaging demonstrate myocardial perfusion changes at rest which appear to improve/normalize following stress appearing compatible with shifting soft tissue attenuation/artifact with no myocardial perfusion changes considered diagnostic for associated stress-induced myocardial ischemia. 2. The gated Cardiolite study reports an LVEF of 62 %. This note was generated with [employer] software. It may contain incorrect words, spelling, and punctuation that were not noted in checking the note before signing.
--- NOTE | 2018-06-20 11:34 | PCM.DC ---
- Discharge Diagnoses Current Active Problems: Current Active and Chronic Problems Chest pain (Acute) Cardiac enzymes elevated (Acute) HLD (hyperlipidemia) (Chronic) Diabetes mellitus, type II (Chronic) LAM (nonalcoholic steatohepatitis) (Chronic) Anxiety and depression (Chronic) History of pericarditis (Chronic) CAD (coronary artery disease) (Chronic) Tobacco use (Acute) You will use the following diet at home:: Calorie/Carbohydrate Controlled (specify 1200, 1400, etc), Cardiac Discharge Activity: Return to Normal Activity Call your doctor if you observe: Shortness of breath, Dizziness, Fainting spells, Chest pain Allergies/Adverse Reactions: Allergies Iodinated Contrast- Oral and IV Dye [CONTRASTS] Adverse Reaction (Verified 06/18/18 01:58) Nausea/Vom/Diarrhea SHRIMP Allergy (Uncoded 04/01/17 10:14) Swelling PLASTIC TAPE ADHESIVE Adverse Reaction (Uncoded 04/01/17 10:14) Rash Medications to take at Discharge Lorazepam [Ativan] 0.5 mg PO QHS 05/21/14 Vilazodone Hydrochloride [Viibryd] 40 mg PO DAILY 05/21/14 Lamotrigine [Lamictal] 150 mg PO QHS 02/20/16 Metformin HCl [Glucophage] 500 mg PO BIDCM 02/20/16 Nitroglycerin [Nitrostat] 0.4 mg SUBLINGUAL Q5M PRN 02/20/16 glipiZIDE [Glucotrol] 10 mg PO DAILY@0730 02/20/16 Albuterol Inhaler [Ventolin Hfa] 1 - 2 puff INHALATION Q4H PRN PRN 06/25/16 Trazodone HCl 50 - 100 mg PO QHS 04/01/17 Aspirin [Aspirin, Baby] 81 mg PO DAILY@0800 06/18/18 Ibuprofen 600 mg PO Q6H PRN 06/18/18 Insulin Detemir [Levemir] 18 unit SQ BREAKFAST 06/18/18 Atorvastatin Calcium [Lipitor] 40 mg PO QHS #30 tab 06/20/18 Carvedilol [Coreg (Beta Umesh)] 3.125 mg PO BID #60 tab 06/20/18 Fenofibrate [Tricor] 48 mg PO DAILY #30 tab 06/20/18 Pantoprazole Sodium [Protonix] 40 mg PO DAILY #30 tab 06/20/18 The following prescriptions were given: Atorvastatin Calcium [Lipitor] 40 mg PO QHS #30 tab Fenofibrate [Tricor] 48 mg PO DAILY #30 tab Pantoprazole Sodium [Protonix] 40 mg PO DAILY #30 tab Carvedilol [Coreg (Beta Umesh)] 3.125 mg PO BID #60 tab Primary Care Physician: Tito Morales MD [Primary Care Provider] - Please follow up with your Primary Care Physician in: 1 Week Test Results: Test results from this visit will be discussed in further detail at your follow-up appointment, if applicable. Please Follow Up With: Bao [place] MD When: 1 Week Proposed Discharge Date: 06/20/18
--- NOTE | 2018-06-20 11:36 | PCM.DC.SUM ---
<Lala Gudino - Last Filed: 06/20/18 11:41> Discharge Date and Diagnosis Date of Admission: 06/18/18 Date of Discharge: 06/20/18 - Primary Discharge Diagnosis Active and Suspected Problems 1. Noncardiac chest pain 2. Hypertension 3. Hyperlipidemia - Secondary Discharge Diagnosis Chronic Problems HLD (hyperlipidemia) (Chronic) Diabetes mellitus, type II (Chronic) LAM (nonalcoholic steatohepatitis) (Chronic) Anxiety and depression (Chronic) History of pericarditis (Chronic) CAD (coronary artery disease) (Chronic) Hospital Course and Treatment Imaging Results: Operations: None Procedures: Stress test Summary of Care Provided: The patient is a 37 year old M admitted 06/18/18 due to chest pain. 1. Chest pain-troponin reported to be 0.05 at outside facility ER. Troponin negative x3 during admission. EKG without ST-T changes. Per medical records, patient has had multiple ER visits with complaints of chest pain in which workup has been unremarkable. Chest x-ray on admission showed no acute cardiopulmonary process. Continue aspirin, statin. Stress test negative for ischemia. Patient will follow up with Dr. Gomez, [facility] cardiology in 1 week. 2. CAD-patient reports history of CAD. Follows with Dr. Gomez. Per records, patient has never had a cath. Unclear history of CAD. Continue aspirin, statin. 3. History of pericarditis 4. Hypertension-not previously on regimen. Blood pressure mildly elevated on admission and patient was started on low-dose carvedilol 3.125 mg twice daily. Continue to monitor. 5. Hyperlipidemia-home statin regimen increased. Continue atorvastatin 40 mg nightly. Fenofibrate 48 mg p.o. daily added due to triglycerides 1138. 6. Type 2 diabetes mellitus-continue home regimen. 7. LAM-patient educated on avoiding alcohol. Continue outpatient follow-up. 8. Tobacco dependence-encourage smoking cessation. 9. Asthma-continue as needed albuterol aerosol. 10. Anxiety/depression-continue home regimen. 11. SONIA-continue CPAP nightly. General: Alert, Oriented x3, Cooperative, No apparent distress HEENT: Atraumatic, PERRLA, EOMI, Normocephalic Neck: Supple, No JVD, Negative Carotid Bruits Lungs: Clear to auscultation, Normal air movement Cardiovascular: Regular rate, Regular Rhythm, Normal S1, Normal S2, No murmurs Abdomen: Bowel Sounds Present, Soft, Non Tender, Non-Distended Extremities: No clubbing, No cyanosis, No edema, Capillary Refill Less than 3 Seconds Skin: No rashes, No breakdown Musculoskeletal: No Tenderness to Palpation of Joints or Extremities Neurological: Cranial nerves II-XII grossly intact, Neuro grossly intact Psych/Mental Status: Normal Affect, Appropriate Patient seen exam prior to discharge. Physical assessment as noted above. Patient stable for discharge home with further follow-up as noted above. This patient was seen by TRISHA Angela under the supervision of Dr. Allred. Discharge Diet: Low fat/ Low Cholesterol, Carb Control Diet Discharge Activity: Return to Normal Activity Call your doctor if you observe: Shortness of breath, Dizziness, Fainting spells, Chest pain Home Medications: Medications to take at Discharge Lorazepam [Ativan] 0.5 mg PO QHS 05/21/14 Vilazodone Hydrochloride [Viibryd] 40 mg PO DAILY 05/21/14 Lamotrigine [Lamictal] 150 mg PO QHS 02/20/16 Metformin HCl [Glucophage] 500 mg PO BIDCM 02/20/16 Nitroglycerin [Nitrostat] 0.4 mg SUBLINGUAL Q5M PRN 02/20/16 glipiZIDE [Glucotrol] 10 mg PO DAILY@0730 02/20/16 Albuterol Inhaler [Ventolin Hfa] 1 - 2 puff INHALATION Q4H PRN PRN 06/25/16 Trazodone HCl 50 - 100 mg PO QHS 04/01/17 Aspirin [Aspirin, Baby] 81 mg PO DAILY@0800 06/18/18 Ibuprofen 600 mg PO Q6H PRN 06/18/18 Insulin Detemir [Levemir] 18 unit SQ BREAKFAST 06/18/18 Atorvastatin Calcium [Lipitor] 40 mg PO QHS #30 tab 06/20/18 Carvedilol [Coreg (Beta Umesh)] 3.125 mg PO BID #60 tab 06/20/18 Fenofibrate [Tricor] 48 mg PO DAILY #30 tab 06/20/18 Pantoprazole Sodium [Protonix] 40 mg PO DAILY #30 tab 06/20/18 Following Prescrptions Were Given to Patient: Atorvastatin Calcium [Lipitor] 40 mg PO QHS #30 tab Fenofibrate [Tricor] 48 mg PO DAILY #30 tab Pantoprazole Sodium [Protonix] 40 mg PO DAILY #30 tab Carvedilol [Coreg (Beta Umesh)] 3.125 mg PO BID #60 tab Primary Care Physician: Tito Morales MD [Primary Care Provider] - Please follow up with your Primary Care Physician in: 1 Week Please Follow Up With: Bao [place] MD When: 1 Week Disposition: Home Minutes spent on discharge:: 35 Patient Condition:: Stable Medical Necessity - Tobacco Use Smoking Status: Current every day smoker Tobacco Use: Cigarettes Meaningful Use Info Meaningful Use Diagnoses (Choose all that apply): None applicable <ChalinoPatel - Last Filed: 06/20/18 16:19> Discharge Date and Diagnosis - Secondary Discharge Diagnosis Chronic Problems HLD (hyperlipidemia) (Chronic) Diabetes mellitus, type II (Chronic) LAM (nonalcoholic steatohepatitis) (Chronic) Anxiety and depression (Chronic) History of pericarditis (Chronic) CAD (coronary artery disease) (Chronic) Hospital Course and Treatment Summary of Care Provided: This patient was seen in conjunction with Lala GARZA. I have independently interviewed and examined the patient and reviewed pertinent history, examination findings, laboratory and plan of management. I have reviewed the note and agree with the documented findings with the few additional points. In brief, patient is admitted for evaluation of chest pain. During hospital course, troponins and EKG are not suggestive of ischemic heart disease. Patient smokes one half pack cigarettes daily. D-dimer negative. patient follows Dr. Guerra and had a stress test in the past but never had cardiac cath. Stress test reported as normal with no myocardial perfusion changes consistent with stress associated myocardial ischemia. I have discussed my assessment with Lala GARZA and orders have been reviewed. [] Code Visit OBSV E&M: 80347 Observation care discharge
[2018-06-20] MEDS: Albuterol 2.5 MG/3 ML VIAL.NEB. INHALATION (11:48)
[2018-06-20 14:43] LABS: Pathologist Review Reviewed
== END 2018-06-20 11:34 | disposition home or self-care (01) ==
PROVIDERS: Nurse Practitioner Family; Student in an Organized Health Care Education/Training Program; Admitting Provider Family Medicine; Family Provider Family Medicine; PCP Family Medicine; Visit Provider Internal Medicine
DX: R07.89 Other chest pain (principal); E78.5 Hyperlipidemia, unspecified; E11.9 Type 2 diabetes mellitus without complications; I10 Essential (primary) hypertension; Z79.899 Other long term (current) drug therapy; Z79.4 Long term (current) use of insulin; Z79.82 Long term (current) use of aspirin; F41.9 Anxiety disorder, unspecified; F32.9 Major depressive disorder, single episode, unspecified; J45.909 Unspecified asthma, uncomplicated; I25.10 Atherosclerotic heart disease of native coronary artery without angina pectoris; K75.81 Nonalcoholic steatohepatitis (NASH); F17.210 Nicotine dependence, cigarettes, uncomplicated; G47.33 Obstructive sleep apnea (adult) (pediatric)
CPT/HCPCS: 36415; 78452; 80048; 80053; 80061; 82962; 83735; 84484; 85025; 85027; 85379; 85610; 85652; 85730; 86140; 93005; 93017; 94640; 96361; 96372; 96374; 96376; 97802; 99218; 99406; A9500; J7030; A4216; G0378; J2785

== ENCOUNTER → 2019-01-22 19:59 | Outpatient (CLI) | payer MEDICARE, SELFPAY | PROVIDERS: Family Provider Family Medicine; PCP Family Medicine; Referring Provider Family Medicine; Visit Provider Family Medicine | DX: G47.33 Obstructive sleep apnea (adult) (pediatric) (principal) | CPT/HCPCS: 95811 ==

== ENCOUNTER 2019-12-01 21:54 | Emergency (ER) | payer MEDICARE, MEDICAID, SELFPAY ==
[2019-12-01 21:55] VITALS: BP 139/90; PULSE 77; RESP 18; TEMP 36.6; O2SAT 97; BMI 31.5
--- NOTE | 2019-12-01 22:11 | ED.DCSUM_ITS ---
- ER Visit Summary Date of Service: 12/01/19 Chief Complaint: Abscess History of Present Illness: The patient is a 39 M who presents with an abscess above his left ear that has gradually gotten worse over the past week. Patient states he attempted to pull hairs out of the area thinking that it was an ingro wn hair. Patient states he attempted to squeeze it and had a small amount of drainage. Patient describes his pain as sharp and burning. Patient states the pain is localized to the area above his left ear. Patient states pain is worse with squeezing. Patient denies any fevers or chills. Patient denies any nausea or vomiting. Physical Examination: Vital signs are stable. Patient is afebrile. Patient is in no acute distress. Skin is warm and dry. There is a tender fluctuant area above the left ear. There is no erythema or warmth. There is no active discharge or drainage. There is no induration. Tympanic membranes are occluded by cerumen bilaterally. There is no tenderness over the mastoid processes. Oral mucosa is pink and moist. Oropharynx is clear. Neck is supple. Trachea is midline. There is no JVD. Emergency Department Course and Treatment: The area was cleaned and anesthetized 1% plain lidocaine locally. The area was incised with a #11 blade scalpel using a cruciate incision. A small amount of purulent drainage was expressed. The wound was left open. Patient was given a dose of Keflex. Patient was given a prescription for Keflex. Patient was instructed to follow-up with his primary care physician in 5 to 7 days. Patient understood and was agreeable with the plan. All questions were answered. Disposition: Discharge home Impression: Abscess This note was generated with [employer] Kar[employer] dictation software. It may contain incorrect words, spelling, and punctuation that were not noted in review of the chart prior to signing ED Disposition - Plan for ED Patient: Disposition: Home or Assisted Living Diagnosis: Abscess of scalp Instructions: ABSCESS, Incision and Drainage Prescriptions: Cephalexin [Keflex] 500 mg PO Q6 #40 cap Prescription Printed Referrals: Tito Morales MD [Primary Care Provider] - 5-7 Days
[2019-12-01] MEDS: Cephalexin 250 MG Capsule 500 MG PO (23:10)
== END 2019-12-01 23:14 | disposition home or self-care (01) ==
PROVIDERS: Emergency Provider Emergency Medicine; PCP Family Medicine
DX: L02.811 Cutaneous abscess of head [any part, except face] (principal); F41.9 Anxiety disorder, unspecified; Z72.0 Tobacco use; Z79.82 Long term (current) use of aspirin; Z79.4 Long term (current) use of insulin; Z79.899 Other long term (current) drug therapy
CPT/HCPCS: 69000; 99283

== ENCOUNTER 2020-04-23 21:03 | Emergency (ER) | payer MEDICARE, MEDICAID, SELFPAY ==
[2020-04-23 21:04] VITALS: BP 134/90; PULSE 90; RESP 16; TEMP 36.8; O2SAT 96; BMI 30.2
--- NOTE | 2020-04-23 21:18 | RAD_ITS ---
STUDY: X-RAY - RIGHT ELBOW REASON FOR EXAM: Male, 39 years old. Fall. Pain. TECHNIQUE: 3 view(s) of the elbow. COMPARISON: None. FINDINGS: Normal visualized humerus, radius and ulna. Normal radiocapitellar and ulnotrochlear articulations. The soft tissue structures are unremarkable. There is no demonstrated fracture. RAD/Elbow min 3 Views IMPRESSION: Normal x-ray examination of the elbow. Electronically Signed: Alexis Marcelino MD at 21:36 EDT , Service support ,
--- NOTE | 2020-04-23 22:00 | ED.DCSUM_ITS ---
History of Present Illness Chief Complaint: Upper Extremity Injury Informant: Patient Occurred: Today Mechanism/Context: Fall Context: Sudden Onset Timing: Continuous Quality of Pain: Aching Location: R elbow, more at distal triceps Current Severity: Moderate Maximum Severity: Severe Worsened by: extending at elbow Relieved by: remaining still Associated Symptoms: Parasthesia - index and middle fingers, mild. Negative for: Weakness, Loss of Funtion Narrative: Patient states he was getting up into his truck, he had flip-flops on and 1 of them got caught on the step/rail underneath the door, causing him to fall ba ckwards onto his right elbow area. [id number]. No other injuries. - Past Medical History (1) Anxiety and depression Status: Chronic (2) CAD (coronary artery disease) Status: Chronic (3) Diabetes mellitus, type II Status: Chronic (4) HLD (hyperlipidemia) Status: Chronic (5) LAM (nonalcoholic steatohepatitis) Status: Chronic Past Medical History - Allergies and Home Meds Allergies/Adverse Reactions: Allergies Iodinated Contrast Media [CONTRASTS] Adverse Reaction (Verified 04/23/20 21:06) Nausea/Vom/Diarrhea SHRIMP Allergy (Uncoded 04/23/20 21:06) Swelling PLASTIC TAPE ADHESIVE Adverse Reaction (Uncoded 04/23/20 21:06) Rash Primary Care Physician: Tito Morales MD [Primary Care Provider] - Surgical History: - - Right wrist surgery, right knee arthroscopic surgery and meniscal repair, cholecystectomy, appendectomy. Smoking Status: Current every day smoker - Family History Maternal Family History: Reports: - - Patient notes a maternal family history of psychiatric disease as well as heart disease. Paternal Family History: Reports: - - Patient with a paternal family history of cancer, heart disease with [place] history, diabetes. Review of Systems Eyes: Denies: Visual changes - bilaterally, Diplopia ENT: Denies: Bilateral ear pain, Rhinorrhea, Sore throat Cardiovascular: Denies: Chest pain, Palpitations Gastrointestinal: Denies: Nausea, Vomiting Musculoskeletal: Reports: Extremity Pain Neurological: Reports: Parasthesia. Denies: Headache, Weakness Physical Exam Vital Signs/Narrative: Vital Signs Temp Pulse Resp BP Pulse Ox 04/23/20 21:04 98.3 F 90 16 134/90 H 96 General: Well nourished, Well developed, - - Well-appearing, no acute distress Head: Normocephalic, Atraumatic Eyes: Perrl, EOMI Extremeties: Full range of motion right upper extremity with the exception of mi ld limitation only at extreme of extension at the elbow. No bony tenderness at the olecranon, medial or lateral epicondyles, or radial head. Tenderness is in the distal third of the triceps. There is no deformity or muscular gap to suggest head rupture. There is no bony humerus tenderness anteriorly or bicep tenderness. Pain is reproduced by active extension at the elbow, flexion against resistance is painless. Full range of motion of the shoulder without pain there or tenderness subacromial/bony. Full range of motion of the wrist and fingers/hand, including pain with supination/pronation. Skin: Normal color, No rash, No Trauma - Skin intact Neurological: Alert, Oriented x3, Cranial nerves II-XII grossly intact, Normal Strength, Normal Sensation, Normal Gait, - - GCS 15 Psychological: Normal affect, Normal Mood Diagnostic/Tx/Re-eval Clinical Impression(s) from Imaging Studies Elbow X-Ray 04/23/20 21:18 IMPRESSION: Normal x-ray examination of the elbow. Electronically Signed: Alexis Marcelino MD at 21:36 EDT , Service support , - Medical Decision Making X-rays are negative. Reassured patient he likely has muscular contusion, and hopefully just a neurapraxia. I do not think he needs other advanced emergent imaging, but if his paresthesias do not resolve he may need this or EMG. He understands, is given a dose of ibuprofen, declines an ice pack since he has at home, and is okay with following up with his doctor. ED Disposition - Plan for ED Patient: Disposition: Home or Assisted Living Diagnosis: Contusion of right elbow, Paresthesias in right hand Instructions: ED ELBOW CONTUSION, ED Paraesthesias Referrals: Tito Morales MD [Primary Care Provider] - 3-5 Days if not improving
[2020-04-23 22:05] VITALS: RESP 18
[2020-04-23] MEDS: Ibuprofen 600 MG Tablet PO (22:28)
== END 2020-04-23 22:29 | disposition home or self-care (01) ==
LOC: ED 22:06
PROVIDERS: Emergency Provider Emergency Medicine; PCP Family Medicine
DX: S50.01XA Contusion of right elbow, initial encounter (principal); S60.221A Contusion of right hand, initial encounter; R20.2 Paresthesia of skin; V58.4XXA Person boarding or alighting a pick-up truck or van injured in noncollision transport accident, initial encounter; Y93.9 Activity, unspecified; Y92.9 Unspecified place or not applicable; Y99.9 Unspecified external cause status; K75.81 Nonalcoholic steatohepatitis (NASH); I25.10 Atherosclerotic heart disease of native coronary artery without angina pectoris; E11.9 Type 2 diabetes mellitus without complications; E78.5 Hyperlipidemia, unspecified; F32.9 Major depressive disorder, single episode, unspecified; F41.9 Anxiety disorder, unspecified; Z79.82 Long term (current) use of aspirin; Z79.4 Long term (current) use of insulin; Z79.899 Other long term (current) drug therapy; F17.200 Nicotine dependence, unspecified, uncomplicated
CPT/HCPCS: 73080; 99283

== ENCOUNTER 2021-06-11 09:16 | Observation (INO) | payer MEDICARE, MEDICAID, SELFPAY ==
[2021-06-11] VITALS (9 sets, daily range): BP systolic 123–151; BP diastolic 78–107; PULSE 62–85; RESP 15–25; TEMP 36.4–36.8; O2SAT 93–97; BMI 31.4; BMI 30.4
--- NOTE | 2021-06-11 09:30 | ED.RN ---
pt to see a neurologist soon for tremors that started last month. pt with hx. lt sided weakness and numbness and intermittant prasad.
--- NOTE | 2021-06-11 09:31 | RAD_ITS ---
STUDY: X-RAY CHEST REASON FOR EXAM: Male, 40 years old. Neuro deficit, acute, stroke suspected TECHNIQUE: Single AP portable view of the chest. COMPARISON: Comparison is made with prior examination dated 02/20/2016. FINDINGS: The lungs are clear and expanded. There is no demonstrated pleural abnormality. Normal size heart. Normal mediastinum and óscar. Normal visualized pulmonary arteries. Normal visualized aortic arch and descending thoracic aorta. Normal visualized thoracic spine. Normal visualized ribs, clavicles, and shoulders. There is no demonstrated abnormality of the visualized soft tissue structures of the upper abdomen. RAD/Chest 1 View IMPRESSION: Normal x-ray examination of the chest. Electronically Signed: Mk Jay MD at 10:46 EDT , Service support ,
--- NOTE | 2021-06-11 09:31 | CT_ITS ---
STUDY: CT HEAD STROKE PROTOCOL W/O CONTRAST INJECTION REASON FOR EXAM: Male, 40 years old. Neuro deficit, acute, stroke suspected RADIATION DOSAGE (If Supplied By Facility): CTDIvol = ( 44.99.) mGy, DLP = ( 1133 ) mGycm TECHNIQUE: Transaxial CT imaging of the brain was performed without administration of intravenous contrast material. Individualized dose optimization techniques were used for this CT. COMPARISON: Comparison is made with prior study dated 02/20/2016. FINDINGS: Normal soft tissue structures. Normal calvarium. Normal size ventricles and extra-axial spaces for the patient''s age. Normal white matter tracts of the cerebral hemispheres. Normal basal ganglia and thalami. Normal brainstem. Normal cerebellum. There is no intracranial hemorrhage. There are no findings of an acute ischemic infarction. Findings suggestive of a hyperdense right middle cerebral artery. Correlation with CT is recommended. Normal visualized paranasal sinuses. CT/STROKE Brain/Head without Cont IMPRESSION: No acute ischemic infarct is seen. Questionable hyperdense right middle cerebral artery. Correlation with CTA is recommended. N.B. : The above Results were Read Back by Mk Jay MD to Dr Saroj MD, and understanding confirmed on 06/11/2021 09:54:42 (ET). Electronically Signed: Mk Jay MD at 9:57 EDT , Service support ,
--- NOTE | 2021-06-11 09:31 | EKG12_ITS ---
Test Reason : STROKE Blood Pressure : / mmHG Vent. Rate : 083 BPM Atrial Rate : 083 BPM P-R Int : 154 ms QRS Dur : 084 ms QT Int : 362 ms P-R-T Axes : 026 020 036 degrees QTc Int : 425 ms Normal sinus rhythm Normal ECG Confirmed by KELI DUNN, CATRACHITO ([id number]), supervising editor trailer TANIKA JACKSON ([id number]) on 06/15/2021 10:26:00 AM Referred By: TOBY Confirmed By:CATRACHITO DICKEY MD
--- NOTE | 2021-06-11 09:33 | CT_ITS ---
STUDY: CTA HEAD AND NECK WITH CONTRAST REASON FOR EXAM: Male, 40 years old. Left sided numb, COE RADIATION DOSAGE (If Supplied By Facility): CTDIvol = ( 26.40 ) mGy, DLP = ( 813.11 ) mGycm TECHNIQUE: CT angiography was performed with a multi-detector CT scanner. Data acquisition was obtained from the skull base through the vertex following intravenous administration of IV 100mL Isovue-[id number]. MIP images were reconstructed from the axial data set. Post-processing of the angiographic images was performed, with multiplanar reformation and 3D reconstruction. Individualized dose optimization techniques were used for this CT. COMPARISON: No relevant priors. FINDINGS: Normal bilateral petrous carotid arteries. Normal right cavernous carotid artery with a normal supraclinoid bifurcation. Normal left cavernous carotid artery with a normal supraclinoid bifurcation. Normal right A1 segments of the anterior cerebral artery. Normal left A1 segments of the anterior cerebral artery. Normal intact anterior communicating artery (ACOM). Normal bilateral A2 segments of the anterior cerebral arteries. Normal right M1 and M2 segments of the middle cerebral arteries, with a normal M1 bifurcation. Normal left M1 and M2 segments of the middle cerebral arteries, with a normal M1 bifurcation. Normal right posterior communicating artery (PCOM). Normal left posterior communicating artery (PCOM). Normal bilateral vertebral arteries. Normal basilar artery with a normal basilar bifurcation. The visualized bilateral superior cerebellar (SCA) arteries are normal. Normal bilateral P1, P2 and visualized P3 segments of the posterior cerebral arteries. There is no demonstrated aneurysm of the [place]. There is no demonstrated abnormality of the visualized brain. AORTIC ARCH: Normal visualized aortic arch. Normal origins of the brachiocephalic, left common carotid, and left subclavian arteries. RIGHT CAROTID ARTERIES: Normal right common carotid artery (CCA). Normal right common carotid bulb. Normal origin of the right internal carotid (ICA) artery without a hemodynamically significant stenosis. Normal visualized cervical portion of the right internal carotid artery. Normal origin of the right external carotid artery (ECA). LEFT CAROTID ARTERIES: Normal left common carotid artery (CCA). Normal left common carotid bulb. Normal origin of the left internal carotid (ICA) artery without a hemodynamically significant stenosis. Normal visualized cervical portion of the left internal carotid artery. Normal origin of the left external carotid artery (ECA). VERTEBRAL ARTERIES: Normal bilateral vertebral arteries. CT/STROKE CTA Head AND Neck W/Con IMPRESSION: Normal CTA Head and neck with contrast. N.B. : The above Results were Read Back by Mk Jay MD to ROSEMARY HAMEED and understanding confirmed on 06/11/2021 12:08:52 (ET). Electronically Signed: Mk Jay MD at 12:09 EDT , Service support ,
[2021-06-11 09:46] LABS: Bedside Glucose 357 mg/dL (70-110)
--- NOTE | 2021-06-11 09:57 | EDS_ITS ---
HPI History of Present Illness Chief Complaint: Neuro S/Sx Informant: patient and spouse/S.O. Narrative Narrative: Patient is a 40-year-old male with a past medical history of [place], CAD, diabetes, hyperlipidemia who presents to the emergency department for headache and left-sided loss of sensation. His initial symptoms started around 9:30 PM last night. He felt like he was sitting in a bubble and could not hear anything. His hearing came back and had a roaring sensation in his head. He tried taking a Tylenol and tried an Ativan as he does have a history of panic attacks. He ended up being able to fall asleep. Whenever he woke up this morning he felt weakness. His left arm, left face and left leg all felt numb. He has never had this happen before. He denies any vision changes. His headache is since resolved. He denies any recent illness including any cough or fever/chills. No vomiting. He is currently supposed to see a neurologist for a tremor and potentially has Parkinson's disease as it runs in his family. [facility] Medical History (Updated 06/11/21 @ 13:[address] Compa Hameed, ) Anxiety Coronary artery disease Fatty liver Myocardial infarct Home Medications lorazepam 0.5 mg PO QHS 05/21/14 [History Last Taken 04/07/17 05:00] vilazodone [Viibryd] 40 mg PO DAILY 05/21/14 [History Last Taken 06/17/18 10:00] glipizide 10 mg PO DAILY@0730 02/20/16 [History Last Taken 06/17/18 10:00] lamotrigine 150 mg PO QHS 02/20/16 [History Last Taken 06/17/18 22:00] metformin 500 mg PO BIDCM 02/20/16 [History Last Taken Unknown] nitroglycerin 0.4 mg SUBLINGUAL Q5M PRN 02/20/16 [History Last Taken 06/17/18 22:15] albuterol sulfate [Ventolin HFA] 1 - 2 puff INHALATION Q4H PRN PRN 06/25/16 [History Last Taken 06/17/18 10:00] trazodone 50 - 100 mg PO QHS 04/01/17 [History Last Taken Unknown] aspirin 81 mg PO DAILY@0800 06/18/18 [History Last Taken Unknown] ibuprofen 600 mg PO Q6H PRN 06/18/18 [History Last Taken Unknown] insulin detemir U-100 [Levemir U-100 Insulin] 18 unit SQ BREAKFAST 06/18/18 [History Last Taken 06/17/18 10:00] atorvastatin 40 mg PO QHS #30 tab 06/20/18 [Rx Last Taken Unknown] carvedilol 3.125 mg PO BID #60 tab 06/20/18 [Rx Last Taken Unknown] fenofibrate nanocrystallized 48 mg PO DAILY #30 tab 06/20/18 [Rx Last Taken Unknown] pantoprazole 40 mg PO DAILY #30 tab 06/20/18 [Rx Last Taken Unknown] cephalexin 500 mg PO Q6 #40 cap 12/01/19 [Rx Last Taken Unknown] Allergy/AdvReac Type Severity Reaction Status Date / Time Iodinated Contrast Media AdvReac Nausea/Vom/ Verified 04/23/20 21:06 [CONTRASTS] Diarrhea SHRIMP Allergy Swelling Uncoded 04/23/20 21:06 PLASTIC TAPE ADHESIVE AdvReac Rash Uncoded 04/23/20 21:06 Social History Smoking Status: Current every day smoker tobacco type: cigarettes ROS ROS ED Constitutional Constitutional ED: Denies chills or fever(s) Eyes Eyes: Denies change in vision ENT ENT ED: Denies epistaxis or rhinorrhea Cardiovascular Cardiovascular: Denies chest pain or palpitations Respiratory/Chest Respiratory/Chest: Denies cough or dyspnea Gastrointestinal Gastrointestinal: Denies abdominal pain, diarrhea, nausea or vomiting Genitourinary Genitourinary ED: Denies dysuria, hematuria or urinary frequency Musculoskeletal Musculoskeletal: Denies back pain or neck pain Integumentary Denies rash Neurologic Neurologic: Reports headache(s), paresthesias and weakness; Denies dizziness Psychiatric Psychiatric: Reports anxiety EXAM Physical Exam Const Vital Signs: 06/11/21 09:21 06/11/21 09:26 06/11/21 11:01 Temperature 98.2 F 98.2 F Temperature Source Oral Oral Pulse Rate 84 85 69 Respiratory Rate 18 22 H 19 H Blood Pressure 151/102 H 151/102 H 126/96 H Blood Pressure Mean 118 118 106 Pulse Ox 97 95 97 Oxygen Delivery Method Room Air Room Air Room Air 06/11/21 11:30 06/11/21 12:00 Temperature Temperature Source Pulse Rate 62 68 Respiratory Rate 15 25 H Blood Pressure 126/78 H 126/93 H Blood Pressure Mean 94 104 Pulse Ox 94 93 Oxygen Delivery Method Room Air Room Air Positive well nourished and well developed General Appearance ED: well developed and NAD HEENT Reports normocephalic, head/scalp atraumatic and moist mucous membranes Eyes PERRL and EOMs intact bilaterally Neck supple General: Negative for tenderness Chest Wall inspection of chest normal Resp normal respiratory effort and clear to auscultation bilaterally Auscultation: Negative for rales, rhonchi or wheezes Cardio regular rate, regular rhythm and no murmurs GI normal to inspection, nondistended, normoactive bowel sounds and non-tender Palpation: soft; Negative for guarding or rebound tenderness present Extremity normal to inspection General Extremety ED: Negative for edema or tenderness General Extremity: Negative for edema Neuro oriented x3 Neuro Narrative: Patient has left-sided weakness but does not have any drift. He reports a complete loss of sensation of his left side of his body including his forehead, cheek, left arm and left leg. Patient's initial NIH score on arrival was 3. Sensorium / Orientation: alert Psych mental status grossly normal Skin no rashes or lesions noted MDM MDM MDM Narrative Medical decision making narrative: Patient presents the ED for headache and left-sided weakness/loss of sensation. On arrival he is mildly hypertensive otherwise normal vital signs. Initial NIH score of 3. Is not in the TPA window as his initial symptoms started last night around 9:30 PM. Patient does have a contrast allergy and will be pretreated with Benadryl and Solu-Medrol. The reported reaction is a rash. Patient's lab work showed an elevated hemoglobin but otherwise no other significant acute abnormality. He is mildly hyperglycemic. CT scan of the head showed a questionable hyperdense right middle cerebral artery. CT angio was performed and was normal with contrast. Per [facility]'s neurology they recommended patient be admitted for MRI. Patient symptoms have started to improve and getting some feeling back on the left side. At this time we will bring into the hospital for further evaluation and management. He understands and is agreeable with this plan. Lab Data Labs: Laboratory Results - last 24 hr 06/11/21 06/11/21 06/11/21 09:20 09:20 09:20 WBC 10.2 RBC 6.18 Hgb 19.0 H* Hct 53.6 MCV 86.7 MCH 30.7 MCHC 35.4 RDW Std Deviation 38.5 RDW Coeff of Enrique 12.2 Plt Count 179 MPV 11.8 Immature Gran % (Auto) 0.600 Neut % (Auto) 62.8 Lymph % (Auto) 25.2 [place] % (Auto) 4.9 Eos % (Auto) 5.2 H Baso % (Auto) 1.3 H Absolute Neuts (auto) 6.4 Absolute Lymphs (auto) 2.58 Nucleated RBC % 0 Diff Path Review May foll PT INR APTT Sodium 135 L Potassium 4.7 Chloride 106 Carbon Dioxide 23.0 Anion Gap 6 BUN 15 Creatinine 1.08 Estim Creat Clear Calc 93.88 Est GFR (MDRD) Af Amer 97 Est GFR (MDRD) Non-Af 80 BUN/Creatinine Ratio 13.9 Glucose 353 H Calcium 8.9 Magnesium 2.2 Troponin I High Sens 6 POC Glucose 06/11/21 06/11/21 09:39 10:00 WBC RBC Hgb Hct MCV MCH MCHC RDW Std Deviation RDW Coeff of Enrique Plt Count MPV Immature Gran % (Auto) Neut % (Auto) Lymph % (Auto) [place] % (Auto) Eos % (Auto) Baso % (Auto) Absolute Neuts (auto) Absolute Lymphs (auto) Nucleated RBC % Diff Path Review PT 13.6 INR 1.1 APTT 25.1 Sodium Potassium Chloride Carbon Dioxide Anion Gap BUN Creatinine Estim Creat Clear Calc Est GFR (MDRD) Af Amer Est GFR (MDRD) Non-Af BUN/Creatinine Ratio Glucose Calcium Magnesium Troponin I High Sens POC Glucose 357 H Radiography Diagnostic Testing: Radiology Impression Brain CT 06/11/21 09:31 IMPRESSION: No acute ischemic infarct is seen. Questionable hyperdense right middle cerebral artery. Correlation with CTA is recommended. N.B. : The above Results were Read Back by Mk Jay MD to Dr Saroj MD, and understanding confirmed on 06/11/2021 09:54:42 (ET). Electronically Signed: Mk Jay MD at 9:57 EDT , Service support , ADDENDUM: 06/11/21 1004 IMPRESSION: No acute ischemic infarct is seen. Questionable hyperdense right middle cerebral artery. Correlation with CTA is recommended. N.B. : The above Results were Read Back by Mk Jay MD to Dr Saroj MD, and understanding confirmed on 06/11/2021 09:54:42 (ET). Electronically Signed: Mk Jay MD at 9:57 EDT , Service support , Head/Neck CTA 06/11/21 09:33 IMPRESSION: Normal CTA Head and neck with contrast. N.B. : The above Results were Read Back by Mk Jay MD to COMPA HAMEED and understanding confirmed on 06/11/2021 12:08:52 (ET). Electronically Signed: Mk Jay MD at 12:09 EDT , Service support , ADDENDUM: 06/11/21 1216 IMPRESSION: Normal CTA Head and neck with contrast. N.B. : The above Results were Read Back by Mk Jay MD to COMPA HAMEED and understanding confirmed on 06/11/2021 12:08:52 (ET). Electronically Signed: Mk Jay MD at 12:09 EDT , Service support , EKG Initial EKG: Attestation: I personally reviewed and interpreted this EKG as follows: (Rate of 83 bpm normal sinus rhythm. Normal intervals. Normal axis. No signif icant ST elevations or depressions. No T wave abnormalities.) Discharge Plan Triage Chief Complaint: Neuro S/Sx ED Provider: Compa Hameed Dx/Rx/DC Orders Clinical Impression: Left-sided muscle weakness, Loss of feeling or sensation Prescriptions: No Action lorazepam 0.5 MG tablet 0.5 mg PO QHS RF: 0 vilazodone [Viibryd] 10 MG tablet 40 mg PO DAILY RF: 0 lamotrigine 150 MG tablet 150 mg PO QHS RF: 0 metformin 500 MG tablet 500 mg PO BIDCM RF: 0 nitroglycerin 0.4 MG tablet 0.4 mg sublingual Q5M PRN (Reason: Chest Pain) RF: 0 glipizide 5 MG tablet 10 mg PO DAILY@0730 RF: 0 albuterol sulfate [Ventolin HFA] 1 INHALER inhaler 1 - 2 puff inhalation Q4H PRN PRN (Reason: Congestion) RF: 0 trazodone 50 MG tablet 50 - 100 mg PO QHS RF: 0 insulin detemir U-100 [Levemir U-100 Insulin] 100 UNIT/ML Vial 18 unit SQ BREAKFAST RF: 0 aspirin 81 MG Tab.Chew 81 mg PO DAILY@0800 RF: 0 ibuprofen 600 MG tablet 600 mg PO Q6H PRN (Reason: Pain) RF: 0 atorvastatin 40 MG tablet 40 mg PO QHS Qty: 30 RF: 0 carvedilol 3.125 MG tablet 3.125 mg PO BID Qty: 60 RF: 0 fenofibrate nanocrystallized 48 MG tablet 48 mg PO DAILY Qty: 30 RF: 0 pantoprazole 40 MG tablet 40 mg PO DAILY Qty: 30 RF: 0 cephalexin 500 MG capsule 500 mg PO Q6 Qty: 40 RF: 0 Primary Care Provider: Tito Morales Referrals: Tito Morales MD [Primary Care Provider] - Disposition Disposition: Acute Care Hospital [facility]
[2021-06-11 10:00] LABS: Absolute Lymphocyte Count 2.58 X10^3/uL (0.83-4.51); Absolute Neutrophil Count 6.4 X10^3/uL (2.0-7.7); Basophil# 0.13 X10^3/uL; Basophil% 1.3 % (0-1); Eosinophil# 0.53 X10^3/uL; Eosinophils% 5.2 % (0-5); Hematocrit 53.6 % (40-54); Lymphocyte # 2.58 X10^3/ul (0.83-4.51); Lymphocyte % 25.2 % (19-41); Mean Corp Hgb Conc 35.4 g/dL (32-36); Mean Corpuscular Hgb 30.7 pg (27.0-32.0); Mean Corpuscular Volume 86.7 fL (80-94); Mean Platelet Vol. 11.8 fl (6.2-12.0); Monocyte% 4.9 % (0-10); NRBC Flagged by Analyzer 0 % (0-5); Neutrophil # 6.44 X10^3/uL (2.7-7.7); Neutrophil % 62.8 % (47-70); Platelet Count 179 K/mm3 (150-450); RBC Distribution Width CV 12.2 % (11.6-14.6); RBC Distribution Width SD 38.5 fl (35.1-43.9); Red Blood Count 6.18 M/mm3 (4.6-6.2); White Blood Count 10.2 K/mm3 (4.4-11.0)
[2021-06-11] MEDS: Ondansetron 4 MG/2 ML Vial IV (10:01)
[2021-06-11] MEDS: MethylPREDNISolone 125 MG/2 ML Vial 80 MG IV (10:01)
[2021-06-11] MEDS: DiphenhydrAMINE 50 MG/ML Syringe 25 MG IV (10:01)
[2021-06-11 10:15] LABS: Anion Gap 6 (5-15); BUN 15 mg/dL (7-18); BUN/Creat Ratio 13.9 RATIO (10-20); Calcium,Total 8.9 mg/dL (8.5-10.1); Chloride 106 mmol/L (98-107); Creatinine, Serum 1.08 mg/dL (0.70-1.30); EST Glomerular Filtration Rate 80 mL/min (>60); Est Glom Filt Rate - Afr Amer 97 mL/min (>60); Estimated Creatinine Clearance 93.88 ml/min; Glucose 353 mg/dL (74-106); Potassium 4.7 mmol/L (3.5-5.1); Sodium Level 135 mmol/L (136-145); Troponin-I HS 6 pg/mL (3.0-78.0)
[2021-06-11 10:20] LABS: International Normalized Ratio 1.1; Partial Thromboplast Time 25.1 Seconds (24.1-36.2); Prothrombin Time (Protime)PT. 13.6 SECONDS (11.7-14.9)
[2021-06-11 10:31] LABS: Differential Indicated SCAN CRITERIA MET
--- NOTE | 2021-06-11 11:03 | NURSING ---
1030-blue top drawn from lt arm iv and accidentally pulled some hair and pt yelled owww but during stroke assessment pt claims to have no sensation in at all. neuro assessment weak on lt side but no drift obs. pt with difference in severity of all other symptoms
--- NOTE | 2021-06-11 12:48 | ED.RN ---
when pt asked to let rn do covid testing pt refused and stated, absolutly not. im not getting a test for that! pt explained that for admission all had to be tested for other pt saftey. charge preparation technician ,dr, and boarding house manager aware
[2021-06-11 13:08] LABS: Magnesium 2.2 mg/dL (1.6-2.6)
--- NOTE | 2021-06-11 13:46 | HP.PCM.HOS_ITS ---
HPI - General General Date of Admission: 06/11/21 HPI Narrative SHARYN ANDERS, is a 40 M with multiple comorbidities as listed above including bipolar disorder was brought by squad to ER for left-sided numbness, feels tightness left upper and lower extremity, mild weakness and left-sided headache. This is started about 2200 hrs. on 06/10. Patient denies chronic headache. Patient also has unusual symptoms of sitting bubble, could not hear but later got back his hearing as per ER physician documentation. Denies any visual change although he had some metallic piece in the past and claims it was removed by parks recreation director in the past about 10 to 12 years ago and had multiple MRIs in the past. CT head reports some metallic fragment in right eye. Patient was [facility] by [facility]. [facility] neurologist recommended CTA head and neck, MRI head and transthoracic echo but MRI could not be done for metallic fragment in the right eye. The patient has appointment with neurologist [facility] on June 17 at 10 AM. After patient was admitted, he did not want to stay and wants to sign AMA. Patient upset about CT finding of right eye metallic fragment as mentioned above PFSH Medical History Anxiety Asthma Bipolar disorder Coronary artery disease Depression Diabetes Fatty liver GERD (gastroesophageal reflux disease) Myocardial infarct Sleep apnea Smoker Home Medications Viibryd 40 mg PO BID 05/21/14 [History Last Taken 06/17/18 10:00] lorazepam 1.5 mg PO TID 05/21/14 [History Last Taken 04/07/17 05:00] glipizide 10 mg PO DAILY@0730 02/20/16 [History Last Taken 06/17/18 10:00] lamotrigine 250 mg PO TID 02/20/16 [History Last Taken 06/17/18 22:00] metformin 250 mg PO DAILY 02/20/16 [History Last Taken Unknown] nitroglycerin 0.4 mg SUBLINGUAL Q5M PRN 02/20/16 [History Last Taken 06/17/18 22:15] albuterol sulfate [Ventolin HFA] 1 - 2 puff INHALATION Q4H PRN PRN 06/25/16 [History Last Taken 06/17/18 10:00] trazodone 50 - 100 mg PO QHS 04/01/17 [History Last Taken Unknown] aspirin 81 mg PO DAILY@0800 06/18/18 [History Last Taken Unknown] ibuprofen 600 mg PO Q6H PRN 06/18/18 [History Last Taken Unknown] atorvastatin 40 mg PO QHS #30 tab 06/20/18 [Rx Last Taken Unknown] carvedilol 3.125 mg PO BID #60 tab 06/20/18 [Rx Last Taken Unknown] dulaglutide [Trulicity] 4.5 mg SUBCUT QWEEK 06/11/21 [History Last Taken Unknown] Allergy/AdvReac Type Severity Reaction Status Date / Time Iodinated Contrast Media AdvReac Nausea/Vom/ Verified 04/23/20 21:06 [CONTRASTS] Diarrhea SHRIMP Allergy Swelling Uncoded 04/23/20 21:06 PLASTIC TAPE ADHESIVE AdvReac Rash Uncoded 04/23/20 21:06 Social History Smoking Status: Current every day smoker tobacco type: cigarettes ROS ROS Narrative Constitutional: Reports right-sided headache although improving, tightness. HEENT: Reports systems reviewed and no addt'l complaints, except as documented Respiratory/Chest: Denies chest pain, shortness of breath at rest or with exertion Gastrointestinal: Denies coffee ground emesis, hematemesis or vomiting Genitourinary: Denies burning urination or new urinary tract symptoms Musculoskeletal: Reports joint pain and limited range of motion Neurologic: Denies seizure-like activity. Admission HPI skin: No ulcer. No rash Endocrinology: Reports systems reviewed and no addt'l complaints, except as documented Hematologic/Lymphatic: Reports systems reviewed and no addt'l complaints, except as documented Psychiatric: Bipolar disorder. Rest 12 ROS are negative except as mentioned in HPI Vital Signs Vital Signs Vital Signs: 06/11/21 09:21 06/11/21 09:26 06/11/21 11:01 Temperature 98.2 F 98.2 F Temperature Source Oral Oral Pulse Rate 84 85 69 Respiratory Rate 18 22 H 19 H Blood Pressure 151/102 H 151/102 H 126/96 H Blood Pressure Mean 118 118 106 Pulse Ox 97 95 97 Oxygen Delivery Method Room Air Room Air Room Air 06/11/21 11:30 06/11/21 12:00 06/11/21 12:30 Temperature Temperature Source Pulse Rate 62 68 75 Respiratory Rate 15 25 H 19 H Blood Pressure 126/78 H 126/93 H 123/87 H Blood Pressure Mean 94 104 99 Pulse Ox 94 93 94 Oxygen Delivery Method Room Air Room Air Room Air 06/11/21 13:00 Temperature Temperature Source Pulse Rate 82 Respiratory Rate 21 H Blood Pressure 140/107 H Blood Pressure Mean 118 Pulse Ox 94 Oxygen Delivery Method Room Air Weight Weight: 218 lb 11.177 oz Body Mass Index (BMI) 31.4 Physical Exam Narrative General: Alert, Oriented x3, Cooperative HEENT: Atraumatic, PERRLA, EOMI, Normocephalic Oral: No Gingival or Mucosal Lesions/ Ulcerations Neck: Supple, No JVD, Negative Carotid Bruits Lungs: Air entry diminished in bilateral lung bases. No crepitation/rhonchi Cardiovascular: Regular rate, Regular Rhythm, Normal S1, Normal S2, No murmurs Abdomen: Bowel Sounds Present, Soft, Non Tender, Non-Distended : No renal angle tenderness. No suprapubic tenderness. Extremities: No edema, Capillary Refill Less than 3 Seconds Skin: No rashes, No breakdown Musculoskeletal: No Tenderness to Palpation of Joints or Extremities Neurological: Cranial nerves II-XII grossly intact, DTR 2+/4 and Symmetrical, power 5/5 at major joints.NIHSS documented 3 by nursing staff Psych/Mental Status: Labile mood. Results Lab / Micro Data Result Diagrams: 06/11/21 09:20 06/11/21 09:20 Labs: Laboratory Results - last 24 hr 06/11/21 09:20: WBC 10.2, RBC 6.18, Hgb 19.0 H*, Hct 53.6, MCV 86.7, MCH 30.7, MCHC 35.4, RDW Std Deviation 38.5, RDW Coeff of Enrique 12.2, Plt Count 179, MPV 11.8, Immature Gran % (Auto) 0.600, Neut % (Auto) 62.8, Lymph % (Auto) 25.2, [place] % (Auto) 4.9, Eos % (Auto) 5.2 H, Baso % (Auto) 1.3 H, Absolute Neuts (auto) 6.4, Absolute Lymphs (auto) 2.58, Nucleated RBC % 0, Diff Path Review February06/11/21 09:20: Sodium 135 L, Potassium 4.7, Chloride 106, Carbon Dioxide 23.0, Anion Gap 6, BUN 15, Creatinine 1.08, Estim Creat Clear Calc 93.88, Est GFR (MDRD) Af Amer 97, Est GFR (MDRD) Non-Af 80, BUN/Creatinine Ratio 13.9, Glucose 353 H, Calcium 8.9, Troponin I High Sens 6 06/11/21 09:20: Magnesium 2.2 06/11/21 09:39: POC Glucose 357 H 06/11/21 10:00: PT 13.6, INR 1.1, APTT 25.1 Micro: Microbiology 06/11/21 13:05 Nasal Secretion SARS-CoV-2 Antigen (Rapid) - Final Radiology Impression Brain CT 06/11/21 09:31 IMPRESSION: No acute ischemic infarct is seen. Questionable hyperdense right middle cerebral artery. Correlation with CTA is recommended. N.B. : The above Results were Read Back by Mk Jay MD to Dr Saroj MD, and understanding confirmed on 06/11/2021 09:54:42 (ET). Electronically Signed: Mk Jay MD at 9:57 EDT , Service support , ADDENDUM: 06/11/21 1004 IMPRESSION: No acute ischemic infarct is seen. Questionable hyperdense right middle cerebral artery. Correlation with CTA is recommended. N.B. : The above Results were Read Back by Mk Jay MD to Dr Saroj MD, and understanding confirmed on 06/11/2021 09:54:42 (ET). Electronically Signed: Mk Jay MD at 9:57 EDT , Service support , Head/Neck CTA 06/11/21 09:33 IMPRESSION: Normal CTA Head and neck with contrast. N.B. : The above Results were Read Back by Mk Jay MD to ROSEMARY HAMEED and understanding confirmed on 06/11/2021 12:08:52 (ET). Electronically Signed: Mk Jay MD at 12:09 EDT , Service support , ADDENDUM: 06/11/21 1216 IMPRESSION: Normal CTA Head and neck with contrast. N.B. : The above Results were Read Back by Mk Jay MD to ROSEMARY HAMEED and understanding confirmed on 06/11/2021 12:08:52 (ET). Electronically Signed: Mk Jay MD at 12:09 EDT , Service support , Assessment & Plan Assessment/Plan (1) Stroke-like episode: PLAN: This 40-year-old gentleman is being admitted for work-up of stroke 1. Left-sided headache, numbness, tightness possible left hemiplegic migraine or TIA/stroke: Patient is being admitted in ICU as PCU status. Patient got upset after being told for right eye metallic fragment which is contraindication for MRI. He wants to sign AMA. Head and neck CT angiogram reported normal. Brain CT reported no acute ischemic infarct. Admission HPI, seen by [facility] and not candidate for thrombolytics is out of time window. Twelve-lead EKG shows normal sinus 73 bpm. QTc 425 ms. Patient signed AMA did not want to stay further for work-up. 2. Type 2 diabetes mellitus: Serum glucose level is high. Accu-Cheks and ad just according to medical sliding scale. 3 hypertension-the patient acceptable range as per stroke guidelines. 5. Hyperlipidemia-patient on atorvastatin. Fasting profile was ordered for tomorrow a.m. 6. Type 2 diabetes [id number] before meals and at bedtime, with no sliding scale. A1c was ordered for tomorrow a.m. 7. LAM- Continue outpatient follow-up. Unclear history of coronary artery disease/pericarditis as mentioned in previous admission in June 2018 8. Tobacco dependence-encourage smoking cessation. Hematocrit at high 53.6% primarily due to chronic smoking. 9. Asthma-continue as needed albuterol aerosol. 10. Anxiety/depression/bipolar disorder-continue home regimen. 11. SONIA-continue CPAP nightly. Clinical Impression(s) from Imaging Studies Brain CT 06/11/21 09:31 IMPRESSION: No acute ischemic infarct is seen. Questionable hyperdense right middle cerebral artery. Correlation with CTA is recommended. ADDENDUM: 06/11/21 1216 IMPRESSION: Normal CTA Head and neck with contrast. N.B. : The above Results were Read Back by Mk Jay MD to ROSEMARY HANNAHParag and understanding confirmed on 06/11/2021 12:08:52 (ET). Electronically Signed: Mk Jay MD at 12:09 EDT , Service support , Charges/Coding Visit Charges OBSV E&M: [id number] Initial observation care L3
--- NOTE | 2021-06-11 14:54 | PCS.PANDOC ---
PANDEMIC DOCUMENTATION INITIATED: Date: 06/01/2021 Time: 190
--- NOTE | 2021-06-11 15:00 | NURSING ---
This RN explained to the patient that the radiologist had found metal in his right eye from the CT scan. He would not be able to have a MRI. The patient immediately became upset/angry. The patient told this RN that if he could not have the MRI he would leave AMA. This nurse told the patient she would speak to the physician and have him come to bedside. The patient then asked this nurse about getting up to the bathroom when he needs to have a BM. This nurse explained to the patient that there is no bathroom in his room, that he would need to use the bedside commode with our help due to his weakness. The patient also became upset and stated he would not use the bedside commode. This RN told the patient there was no other choice and to use his call light when he needs to go to the bathroom, and not to get up by himself.
--- NOTE | 2021-06-11 15:30 | NURSING ---
Patient spoke with Dr. Allred, and he wants to go AMA. Paperwork signed.
--- NOTE | 2021-06-11 15:53 | DS.PCM_ITS ---
Providers Date of Admission: 06/11/21 Date of Discharge: 06/11/21 Primary Care Physician: Dr. Tito Morales MD Reason For Visit: STROKE Diagnosis Discharge Diagnosis (1) Stroke-like episode: Status: Acute Code(s): R29.90 - Unspecified symptoms and signs involving the nervous system Medications at Discharge Home Medications Viibryd 40 mg PO BID 05/21/14 lorazepam 1.5 mg PO TID 05/21/14 glipizide 10 mg PO DAILY@0730 02/20/16 lamotrigine 250 mg PO TID 02/20/16 metformin 250 mg PO DAILY 02/20/16 nitroglycerin 0.4 mg SUBLINGUAL Q5M PRN 02/20/16 albuterol sulfate [Ventolin HFA] 1 - 2 puff INHALATION Q4H PRN PRN 06/25/16 trazodone 50 - 100 mg PO QHS 04/01/17 aspirin 81 mg PO DAILY@0800 06/18/18 ibuprofen 600 mg PO Q6H PRN 06/18/18 atorvastatin 40 mg PO QHS #30 tab 06/20/18 carvedilol 3.125 mg PO BID #60 tab 06/20/18 dulaglutide [Trulicity] 4.5 mg SUBCUT QWEEK 06/11/21 Hospital Course Summary of Care Provided Hospital Course: Patient signed AMA soon after admission. He is now/septic CT finding as reported by Dr. Suazo. I reviewed CT images myself and agree with the radiologist report. Patient was advised to further history for full work-up of a stroke and advised against AMA but he signed AMA. Patient has decision-making capacity to sign AMA. Rest as mentioned in HPI. Physical Exam Narrative Please see physical findings in H&P as patient signed AMA soon after admission. Weight / BMI Weight Weight: 215 lb 4.8 oz Body Mass Index (BMI) 30.4 ABG / Lab / Microbiology Data Result Diagrams: 06/11/21 09:20 06/11/21 09:20 Laboratory: Laboratory Results - last 24 hr 06/11/21 09:20: WBC 10.2, RBC 6.18, Hgb 19.0 H*, Hct 53.6, MCV 86.7, MCH 30.7, MCHC 35.4, RDW Std Deviation 38.5, RDW Coeff of Enrique 12.2, Plt Count 179, MPV 11.8, Immature Gran % (Auto) 0.600, Neut % (Auto) 62.8, Lymph % (Auto) 25.2, [place] % (Auto) 4.9, Eos % (Auto) 5.2 H, Baso % (Auto) 1.3 H, Absolute Neuts (auto) 6.4, Absolute Lymphs (auto) 2.58, Nucleated RBC % 0, Diff Path Review February06/11/21 09:20: Sodium 135 L, Potassium 4.7, Chloride 106, Carbon Dioxide 23.0, Anion Gap 6, BUN 15, Creatinine 1.08, Estim Creat Clear Calc 93.88, Est GFR (MDRD) Af Amer 97, Est GFR (MDRD) Non-Af 80, BUN/Creatinine Ratio 13.9, Glucose 353 H, Calcium 8.9, Troponin I High Sens 6 06/11/21 09:20: Magnesium 2.2 06/11/21 09:39: POC Glucose 357 H 06/11/21 10:00: PT 13.6, INR 1.1, APTT 25.1 Microbiology: Microbiology 06/11/21 13:05 Nasal Secretion SARS-CoV-2 Antigen (Rapid) - Final Radiography Diagnostic Testing: Radiology Impression Brain CT 06/11/21 09:31 IMPRESSION: No acute ischemic infarct is seen. Questionable hyperdense right middle cerebral artery. Correlation with CTA is recommended. N.B. : The above Results were Read Back by Mk Jay MD to Dr Saroj MD, and understanding confirmed on 06/11/2021 09:54:42 (ET). Electronically Signed: Mk Jay MD at 9:57 EDT , Service support , ADDENDUM: 06/11/21 1004 IMPRESSION: No acute ischemic infarct is seen. Questionable hyperdense right middle cerebral artery. Correlation with CTA is recommended. N.B. : The above Results were Read Back by Mk Jay MD to Dr Saroj MD, and understanding confirmed on 06/11/2021 09:54:42 (ET). Electronically Signed: Mk Jay MD at 9:57 EDT , Service support , ADDENDUM: 06/11/21 1451 Head/Neck CTA 06/11/21 09:33 IMPRESSION: Normal CTA Head and neck with contrast. N.B. : The above Results were Read Back by Mk Jay MD to ROSEMARY HAMEED and understanding confirmed on 06/11/2021 12:08:52 (ET). Electronically Signed: Mk Jay MD at 12:09 EDT , Service support , ADDENDUM: 06/11/21 1216 IMPRESSION: Normal CTA Head and neck with contrast. N.B. : The above Results were Read Back by Mk Jay MD to ROSEMARY HAMEED and understanding confirmed on 06/11/2021 12:08:52 (ET). Electronically Signed: Mk Jay MD at 12:09 EDT , Service support , Meaningful Use Info Meaningful Use Diagnoses (Choose all that apply): None applicable Discharge Plan Admission Admit Date/Time: 06/11/21 12:45 Attending Provider: Patel Allred Primary Care Provider: Tito Morales Discharge Orders/Prescriptions Prescriptions: No Action lorazepam 0.5 MG tablet 1.5 mg PO TID RF: 0 Viibryd 10 MG tablet 40 mg PO BID RF: 0 lamotrigine 150 MG tablet 250 mg PO TID RF: 0 metformin 500 MG tablet 250 mg PO DAILY RF: 0 nitroglycerin 0.4 MG tablet 0.4 mg sublingual Q5M PRN (Reason: Chest Pain) RF: 0 glipizide 5 MG tablet 10 mg PO DAILY@0730 RF: 0 albuterol sulfate [Ventolin HFA] 1 INHALER inhaler 1 - 2 puff inhalation Q4H PRN PRN (Reason: Congestion) RF: 0 trazodone 50 MG tablet 50 - 100 mg PO QHS RF: 0 aspirin 81 MG tablet,chewable 81 mg PO DAILY@0800 RF: 0 ibuprofen 600 MG tablet 600 mg PO Q6H PRN (Reason: Pain) RF: 0 atorvastatin 40 MG tablet 40 mg PO QHS Qty: 30 RF: 0 carvedilol 3.125 MG tablet 3.125 mg PO BID Qty: 60 RF: 0 Trulicity 4.5 mg/0.5 mL Pen Injector 4.5 mg SUBCUT QWEEK RF: 0 Referrals / Follow Up: Tito Morales MD [Primary Care Provider] - Disposition Discharge Orders: Discharge Patient (Routine); Ordered 06/11/21 Ordered By: Dr. Patel Allred Charges/Coding Visit Charges OBSV E&M: 23216 Observ/hosp same date L3
[2021-06-12 12:54] LABS: Pathologist Review Reviewed
== END 2021-06-11 15:50 | disposition left against medical advice (07) ==
LOC: ED 13:15 → ICU 14:03
PROVIDERS: Admitting Provider Internal Medicine; Emergency Provider Emergency Medicine; PCP Family Medicine; Visit Provider Internal Medicine
DX: R29.90 Unspecified symptoms and signs involving the nervous system (principal); I25.10 Atherosclerotic heart disease of native coronary artery without angina pectoris; E11.9 Type 2 diabetes mellitus without complications; E78.5 Hyperlipidemia, unspecified; R51.9 Headache, unspecified; I25.2 Old myocardial infarction; F17.210 Nicotine dependence, cigarettes, uncomplicated; F41.9 Anxiety disorder, unspecified; R29.703 NIHSS score 3; F31.9 Bipolar disorder, unspecified; R20.0 Anesthesia of skin; R53.1 Weakness; J45.909 Unspecified asthma, uncomplicated; K21.9 Gastro-esophageal reflux disease without esophagitis; I10 Essential (primary) hypertension; K75.81 Nonalcoholic steatohepatitis (NASH); Z79.899 Other long term (current) drug therapy; Z79.82 Long term (current) use of aspirin; Z79.4 Long term (current) use of insulin; G47.33 Obstructive sleep apnea (adult) (pediatric)
CPT/HCPCS: 70450; 70496; 70498; 71045; 80048; 82962; 83735; 84484; 85025; 85610; 85730; 87426; 93005; 96374; 96375; 99218; 99285; Q9967; A4216; G0378; J2405

== ENCOUNTER 2021-07-17 11:00 | Outpatient (RCR) | payer MEDICARE, MEDICAID, SELFPAY ==
--- NOTE | 2021-06-24 14:05 | HP.PTEVAL_ITS ---
Patient's Visit Information SHARYN ANDERS is a 40 year old M referred to Physical Therapy by JUAN J QUARLES with a diagnosis of TIA. Date of Evaluation: 06/24/21 Physical Therapist: Abbe Mcmullen, PT, ATC - Visit Plan Frequency: 2-3x /Week Duration: 4-6 Weeks Plan: L LE strengthening and stretching, balance and proprio, core strengthening, gait training, nustep, and HEP - Subjective TIA: 2 weeks ago. Pt reports his noticed he was acting weird and his noticed it so she called a squad. Pt reports he went to the hospital where cat scans showed a small bleed on the R side of his brain. Pt reports he still has some tingling in the L UE and notes weakness in L LE. Pt reports he is only able to ambulate for small distances at this time and finds himself leaning to the R. Pt also notes he has difficulty with stair negotiation. Pt reports he has stairs in his house, and has to negotiate them very slowly. Pt reports he has been using a WW since his TIA, but never used one before. Pt reports he feels like he is getting better overall. Pt reports sleep difficulty at this time but notes it is due to his breathing issues. - Objective Neuro: B LE sensation is WNL to light touch. B patellar reflex= 1/3. MMT: R LE is grossly 5/5 throughout. L LE is 4-/5 throughout. Balance: Pt is able to stand with EO greater than 30 sec without difficulty. Pt is very unsteady with EC after 5 sec. Gait: Pt is able to ambulate with use of WW 60 feet with VC'ing for HS and toe off until feeling tired and needing to sit down - Balance/Special Test Scores Lower Extremity Functional Score: 29 - Goals Goal 1:: Increase L LE strength x 1 grade to aid with stair negotiation Goal Time Frame: 4-6 Weeks Goal 2:: Pt will be able to ambulate greater or equal to 600' with SBA and LRD to aid with community ambulation Goal Time Frame: 4-6 Weeks Goal 3:: I with HEP Goal Time Frame: 4-6 Weeks - Rehabilitation Potential Physical Therapy Diagnosis: Pt has L sided weakness and difficulty with gait secondary to a TIA Rehabilitation Potential: Good - Anticipated Interventions Patient/Client Instruction: Educate patient on: Condition, Plan of Care For the Purpose of:: To improve self management Therapeutic Exercise to Include: Strength training, Endurance training, Balance training, Gait and locomotor training, Active ROM, Dynamic Lumbar Stabilization For the Purpose of:: To improve muscle performance and motor function, To im prove gait and locomotor functions, To improve endurance, To improve balance, To improve ability to perform tasks related to life management Thank you for the opportunity to evaluate your patient. For Medicare and Medicare HMO plans, please review the plan of care and approve it. It will need to be FAXED BACK to us at [phone] for Medicare purposes. For Medicare only, by signing this I certify the plan of care. Please let me know if there are questions or concerns regarding this plan of care. Physician Signature: ____Date:
--- NOTE | 2021-11-02 11:30 | HP.PT.NRP ---
SHARYN ANDERS was seen in my office for initial evaluation on 06/24/21. The following Plan of Care was established for this patient: Initial Frequency: 2-3x /Week Initial Duration: 4-6 Weeks Patient/Client Instruction: Educate patient on: Condition, Plan of Care For the Purpose of:: To improve self management Therapeutic Exercise to Include: Strength training, Endurance training, Balance training, Gait and locomotor training, Active ROM, Dynamic Lumbar Stabilization For the Purpose of:: To improve muscle performance and motor function, To improve gait and locomotor functions, To improve endurance, To improve balance, To improve ability to perform tasks related to life management This patient was last seen in our office . Pertinent comments regarding their Physical therapy will appear below: Pt was treated for 7 PT visits for TIA through the date of 07/17/21. Pt has not returned today and is therefore discontinued at this time. At this point I will be discontinuing this patient from physical therapy. I would be happy to see this patient again in the future if found appropriate by the physician. Thank you! Abbe Mcmullen, PT, ATC Balance/Gait/Functional tests - Balance/Special Test Scores Lower Extremity Functional Score: 29
== END 2021-07-17 19:00 | disposition home or self-care (01) ==
LOC: PT 11:00
PROVIDERS: PCP Family Medicine
DX: Z86.73 Personal history of transient ischemic attack (TIA), and cerebral infarction without residual deficits (principal)
CPT/HCPCS: 97110; 97116; 97161

== ENCOUNTER 2022-09-20 16:03 | Emergency (ER) | payer MEDICARE, MEDICAID, SELFPAY ==
[2022-09-20 16:04] VITALS: BP 127/71; PULSE 104; RESP 16; TEMP 36.9; O2SAT 98; BMI 29.5
[2022-09-20 16:40] VITALS: TEMP 39.4
--- NOTE | 2022-09-20 16:40 | EDS_ITS ---
HPI HPI - URI History of Present Illness Chief Complaint: Cold Sx Narrative Narrative: 41-year-old male presented with cough, congestion, chills, body aches x2 days. He has not checked his temperature. He states he was coughing and felt a little short of breath at home and his called EMS. He was told by EMS that his temperature was 101.2. He states that he does not have any chest pain unless he is coughing. No production of sputum. No nausea or vomiting. No abdominal pain. Although the triage note states that he has a sick child at home with influenza he states that he does not. ROS [facility] ED Constitutional Constitutional ED: Reports chills, fever(s) and subjective Eyes Eyes: Denies change in vision or diplopia ENT ENT ED: Reports rhinorrhea Cardiovascular Cardiovascular: Denies chest pain or palpitations Respiratory/Chest Respiratory/Chest: Reports cough and dyspnea Gastrointestinal Gastrointestinal: Denies abdominal pain, nausea or vomiting Genitourinary Genitourinary ED: Denies dysuria or hematuria Musculoskeletal Musculoskeletal: Reports myalgias Integumentary Denies abscess or Abrasions Neurologic Neurologic: Denies headache(s) Psychiatric Psychiatric: Denies anxiety or depression [facility] Medical History (Updated 09/20/22 @ 16:46 by Agnes Mccormick) Anxiety Asthma Bipolar disorder Coronary artery disease Depression Diabetes Fatty liver GERD (gastroesophageal reflux disease) Myocardial infarct Sleep apnea Smoker TIA (transient ischemic attack) Home Medications lorazepam 0.5 mg tablet 1.5 mg PO TID SLEEP 05/21/14 [History Last Taken 04/07/17 05:00] lamotrigine 150 mg tablet 250 mg PO TID MOOD MEDICATION 02/20/16 [History Last Taken 06/17/18 22:00] metformin 500 mg tablet 250 mg PO DAILY DIABETES 02/20/16 [History Last Taken Unknown] nitroglycerin 0.4 mg sublingual tablet 0.4 mg sublingual Q5M PRN Chest Pain 02/20/16 [History Last Taken 06/17/18 22:15] albuterol sulfate 90 mcg/actuation aerosol inhaler (Ventolin HFA) 1 - 2 puff inhalation Q4H PRN PRN Congestion 06/25/16 [History Last Taken 06/17/18 10:00] trazodone 50 mg tablet 150 mg PO QHS SLEEP 06/16/17 [History Last Taken Unknown] aspirin 81 mg chewable tablet 81 mg PO DAILY@0800 06/18/18 [History Last Taken Unknown] ibuprofen 600 mg tablet 600 mg PO Q6H PRN Pain 06/18/18 [History Last Taken Unknown] atorvastatin 40 mg tablet 40 mg PO QHS #30 tabs 06/20/18 [Rx Last Taken Unknown] dulaglutide 4.5 mg/0.5 mL subcutaneous pen injector (Trulicity) 4.5 mg subcut QWEEK 06/11/21 [History Last Taken Unknown] carbamazepine 100 mg tablet,extended release,12 hr (Tegretol XR) 300 mg PO DAILY 09/20/22 [History Last Taken Unknown] clonidine HCl 0.1 mg tablet 0.1 mg PO BID 09/20/22 [History Last Taken Unknown] empagliflozin 10 mg tablet (Jardiance) 10 mg PO DAILY 09/20/22 [History Last Taken Unknown] ondansetron 4 mg disintegrating tablet 4 mg PO Q8H PRN nausea and vomiting #14 tabs 09/20/22 [Rx Last Taken Unknown] Allergy/AdvReac Type Severity Reaction Status Date / Time shrimp Allergy Swelling Verified 09/20/22 16:04 adhesive tape [plastic tape] AdvReac Rash Verified 09/20/22 16:04 Iodinated Contrast Media AdvReac Nausea/Vom/ Verified 09/20/22 16:04 [CONTRASTS] Diarrhea Social History Smoking Status: Current every day smoker tobacco type: cigarettes EXAM Physical Exam Const Vital Signs: 09/20/22 16:04 09/20/22 16:40 09/20/22 16:47 Temperature 98.5 F 102.9 F H Temperature Source Temporal Oral Pulse Rate 104 H Respiratory Rate 16 Respiratory Effort Normal Respiratory Depth Normal Respiratory Pattern Normal Blood Pressure 127/71 H Blood Pressure Mean 89 Pulse Ox 98 Oxygen Delivery Method Room Air Room Air 09/20/22 18:53 Temperature 99.2 F H Temperature Source Pulse Rate 16 L Respiratory Rate 88 H Respiratory Effort Respiratory Depth Respiratory Pattern Blood Pressure Blood Pressure Mean Pulse Ox 98 Oxygen Delivery Method Positive well nourished General Appearance ED: NAD; Negative for pallor HEENT Reports moist mucous membranes normocephalic Throat: posterior oropharynx normal Neck no lymphadenopathy Resp normal respiratory effort and clear to auscultation bilaterally Auscultation: Negative for rales, rhonchi or wheezes Cardio Rate: tachycardic Rhythm: regular rhythm GI non-tender Neuro oriented x3 and CN's II-XII intact bilaterally Sensorium / Orientation: alert Psych mental status grossly normal Skin General Skin Exam: Negative for jaundice or pallor MDM MDM MDM Narrative Medical decision making narrative: Patient presenting with flulike symptoms. He states I think have come down with the flu. He states he has some chest tightness when he is coughing but otherwise does not have any. I checked his temperature on arrival and it is 1 02.9. His lungs are clear to auscultation. He wants to be tested for COVID and influenza. He took 500 mg of Tylenol before leaving his house and is given a second dose of 500 mg of Tylenol here. Tested negative for COVID and influenza today. Fever is improving. Chest x-ray on my interpretation shows no acute cardiopulmonary process and radiologist agree. Feel patient stable for discharge home at this time. Impression: 1. Viral syndrome 2. Febrile illness Lab Data Attestation: I reviewed the patient's lab results. Radiography Diagnostic Testing: Clinical Impression(s) from Imaging Studies Chest X-Ray 09/20/22 16:55 IMPRESSION: Normal x-ray examination of the chest. Electronically Signed: Prateek Masters MD at 17:11 EST , Discharge Plan Triage Chief Complaint: Cold Sx ED Provider: Kenn Cowan Dx/Rx/DC Orders Instructions: ED Viral Syndrome (Adult) Prescriptions: New ondansetron 4 mg tablet,disintegrating 4 mg PO Q8H PRN (Reason: nausea and vomiting) Qty: 14 0RF No Action lorazepam 0.5 MG tablet 1.5 mg PO TID Label Comments: lamotrigine 150 MG tablet 250 mg PO TID metformin 500 MG tablet 250 mg PO DAILY nitroglycerin 0.4 MG tablet 0.4 mg sublingual Q5M PRN (Reason: Chest Pain) albuterol sulfate [Ventolin HFA] 1 INHALER inhaler 1 - 2 puff inhalation Q4H PRN PRN (Reason: Congestion) trazodone 50 MG tablet 150 mg PO QHS aspirin 81 MG tablet,chewable 81 mg PO DAILY@0800 ibuprofen 600 MG tablet 600 mg PO Q6H PRN (Reason: Pain) atorvastatin 40 MG tablet 40 mg PO QHS Qty: 30 0RF Trulicity 4.5 mg/0.5 mL Pen Injector 4.5 mg SUBCUT QWEEK Label Comments: takes every tue clonidine HCl 0.1 mg tablet 0.1 mg PO BID carbamazepine [Tegretol XR] 100 mg Tablet Extended Release 12 Hr 300 mg PO DAILY Jardiance 10 mg tablet 10 mg PO DAILY Primary Care Provider: Tito Morales Referrals: Tito Morales MD [Primary Care Provider] - Disposition Disposition: Home, Self Care Discharge Date/Time: 09/20/22 18:54
[2022-09-20] MEDS: Acetaminophen 500 MG Tablet PO (16:44)
[2022-09-20 16:47] VITALS: O2SAT 100
--- NOTE | 2022-09-20 16:55 | RAD_ITS ---
STUDY: X-RAY CHEST REASON FOR EXAM: Male, 41 years old. cough TECHNIQUE: Single AP portable view of the chest. COMPARISON: 06/11/2021 FINDINGS: The lungs are clear and expanded. There is no demonstrated pleural abnormality. Normal size heart. Normal mediastinum and óscar. Normal visualized pulmonary arteries. Normal visualized aortic arch and descending thoracic aorta. Normal visualized thoracic spine. Normal visualized ribs, clavicles, and shoulders. There is no demonstrated abnormality of the visualized soft tissue structures of the upper abdomen. RAD/Chest 1 View (Portable) IMPRESSION: Normal x-ray examination of the chest. Electronically Signed: Prateek Masters MD at 17:11 [facility] ,
[2022-09-20 18:53] VITALS: PULSE 16; RESP 88; TEMP 37.3; O2SAT 98
== END 2022-09-20 18:54 | disposition home or self-care (01) ==
PROVIDERS: Emergency Provider Student in an Organized Health Care Education/Training Program; PCP Family Medicine; Visit Provider Student in an Organized Health Care Education/Training Program
DX: B34.9 Viral infection, unspecified (principal); E11.9 Type 2 diabetes mellitus without complications; I25.10 Atherosclerotic heart disease of native coronary artery without angina pectoris; F17.210 Nicotine dependence, cigarettes, uncomplicated; K76.0 Fatty (change of) liver, not elsewhere classified; G47.30 Sleep apnea, unspecified; I25.2 Old myocardial infarction; Z79.82 Long term (current) use of aspirin; Z79.899 Other long term (current) drug therapy; Z79.84 Long term (current) use of oral hypoglycemic drugs; Z86.73 Personal history of transient ischemic attack (TIA), and cerebral infarction without residual deficits
CPT/HCPCS: 71045; 87428; 99282

== ENCOUNTER 2023-04-08 18:11 | Emergency (ER) | payer MEDICARE, MEDICAID, SELFPAY ==
[2023-04-08 18:12] VITALS: BP 127/94; PULSE 86; RESP 16; TEMP 36.2; O2SAT 97; BMI 29.7
--- NOTE | 2023-04-08 18:26 | EX.ED.DYSGE1 ---
HPI History of Present Illness Chief Complaint: Ear Problem Informant: patient Onset/Context/Timing Onset: Days (3 days) Timing: Intermittent Narrative Narrative: Patient presents with left ear fullness and a blockage. He states he first noted symptoms 3 days ago when he was in the shower. When he stepped out symptoms seem to be improved but have been intermittent since. He has been trying eardrops and tried irrigating his ears himself without improvement. He has not had recent URI symptoms. [facility] Medical History Anxiety Asthma Bipolar disorder Coronary artery disease Depression Diabetes Fatty liver GERD (gastroesophageal reflux disease) Myocardial infarct Sleep apnea Smoker TIA (transient ischemic attack) Home Medications lorazepam 0.5 mg tablet 1.5 mg PO TID SLEEP 05/21/14 [History Last Taken 04/07/17 05:00] lamotrigine 150 mg tablet 250 mg PO TID MOOD MEDICATION 02/20/16 [History Last Taken 06/17/18 22:00] metformin 500 mg tablet 250 mg PO DAILY DIABETES 02/20/16 [History Last Taken Unknown] nitroglycerin 0.4 mg sublingual tablet 0.4 mg sublingual Q5M PRN Chest Pain 02/20/16 [History Last Taken 06/17/18 22:15] albuterol sulfate 90 mcg/actuation aerosol inhaler (Ventolin HFA) 1 - 2 puff inhalation Q4H PRN PRN Congestion 06/25/16 [History Last Taken 06/17/18 10:00] trazodone 50 mg tablet 150 mg PO QHS SLEEP 04/01/17 [History Last Taken Unknown] aspirin 81 mg chewable tablet 81 mg PO DAILY@0800 06/18/18 [History Last Taken Unknown] ibuprofen 600 mg tablet 600 mg PO Q6H PRN Pain 06/18/18 [History Last Taken Unknown] atorvastatin 40 mg tablet 40 mg PO QHS #30 tabs 06/20/18 [Rx Last Taken Unknown] dulaglutide 4.5 mg/0.5 mL subcutaneous pen injector (Trulicity) 4.5 mg subcut QWEEK 06/11/21 [History Last Taken Unknown] carbamazepine 100 mg tablet,extended release,12 hr (Tegretol XR) 300 mg PO DAILY 09/20/22 [History Last Taken Unknown] clonidine HCl 0.1 mg tablet 0.1 mg PO BID 09/20/22 [History Last Taken Unknown] empagliflozin 10 mg tablet (Jardiance) 10 mg PO DAILY 09/20/22 [History Last Taken Unknown] ondansetron 4 mg disintegrating tablet 4 mg PO Q8H PRN nausea and vomiting #14 tabs 09/20/22 [Rx Last Taken Unknown] Allergy/AdvReac Type Severity Reaction Status Date / Time shrimp Allergy Swelling Verified 04/08/23 18:13 adhesive tape [plastic tape] AdvReac Rash Verified 04/08/23 18:13 Iodinated Contrast Media AdvReac Nausea/Vom/ Verified 04/08/23 18:13 [CONTRASTS] Diarrhea Social History Smoking Status: Current every day smoker tobacco type: cigarettes ROS ROS ED Constitutional Constitutional ED: Denies chills or fever(s) Eyes Eyes: Denies change in vision or discharge from eye(s) ENT ENT ED: Reports ear pain left; Denies discharge from eye(s), rhinorrhea or sore throat Cardiovascular Cardiovascular: Denies chest pain Respiratory/Chest Respiratory/Chest: Denies cough or dyspnea Gastrointestinal Gastrointestinal: Denies abdominal pain, nausea or vomiting Musculoskeletal Musculoskeletal: Denies back pain or extremity pain Integumentary Denies Abrasions or rash Neurologic Neurologic: Denies headache(s) or weakness Psychiatric Psychiatric: Denies anxiety or depression Allergic/Immunologic Allergic/Immunologic ED: Denies lip swelling or urticaria EXAM Physical Exam Const Vital Signs: 04/08/23 18:12 04/08/23 20:20 Temperature 97.1 F L Temperature Source Temporal Pulse Rate 86 79 Respiratory Rate 16 16 Blood Pressure 127/94 H 120/81 H Blood Pressure Mean 105 Pulse Ox 97 97 Oxygen Delivery Method Room Air Positive well nourished and well developed General Appearance ED: well developed HEENT Reports moist mucous membranes HEENT Narrative: Left TM blocked by cerumen. Mild erythema and irritation to the external canal. Eyes EOMs intact bilaterally Neck no lymphadenopathy Chest Wall inspection of chest normal and palpation of chest normal Resp normal respiratory effort and clear to auscultation bilaterally Cardio regular rate and regular rhythm GI normal to inspection, nondistended, normoactive bowel sounds Extremity normal to inspection Neuro oriented x3 and no sensory deficits noted Motor Exam: strength 5/5 throughout Psych mental status grossly normal Skin no rashes or lesions noted MDM MDM MDM Narrative Medical decision making narrative: Debrox drops placed in the left ear. Left ear is irrigated per nursing staff. They report only a small amount of wax removed. When I reexamined the patient I am now able to fully visualize the tympanic membrane. They had irrigated a lot of the wax out at home, but he still had dense wax deep that was completely sealing across the external ear canal on my initial eval. Patient does have some ear pain from the frequent irrigation. He is advised use Tylenol or ibuprofen. I will also give him a dose of Benadryl to help with antihistamine effect. Discharge Plan Triage Chief Complaint: Ear Problem ED Provider: Tierney Romero Dx/Rx/DC Orders Clinical Impression: Cerumen impaction Instructions: ED Cerumen Impaction Treated Prescriptions: No Action lorazepam 0.5 MG tablet 1.5 mg PO TID Label Comments: lamotrigine 150 MG tablet 250 mg PO TID metformin 500 MG tablet 250 mg PO DAILY nitroglycerin 0.4 MG tablet 0.4 mg sublingual Q5M PRN (Reason: Chest Pain) albuterol sulfate [Ventolin HFA] 1 INHALER inhaler 1 - 2 puff inhalation Q4H PRN PRN (Reason: Congestion) trazodone 50 MG tablet 150 mg PO QHS aspirin 81 MG tablet,chewable 81 mg PO DAILY@0800 ibuprofen 600 MG tablet 600 mg PO Q6H PRN (Reason: Pain) atorvastatin 40 MG tablet 40 mg PO QHS Qty: 30 0RF Trulicity 4.5 mg/0.5 mL Pen Injector 4.5 mg SUBCUT QWEEK Label Comments: takes every tue clonidine HCl 0.1 mg tablet 0.1 mg PO BID carbamazepine [Tegretol XR] 100 mg Tablet Extended Release 12 Hr 300 mg PO DAILY Jardiance 10 mg tablet 10 mg PO DAILY ondansetron 4 mg tablet,disintegrating 4 mg PO Q8H PRN (Reason: nausea and vomiting) Qty: 14 0RF Primary Care Provider: Tito Morales Referrals: Tito Morales MD [Primary Care Provider] - 1 Week if not improving Disposition Disposition: Home, Self Care Discharge Date/Time: 04/08/23 20:23
[2023-04-08] MEDS: Carbamide Peroxide 15 ML Bottle 5 DRP OTIC (19:00)
[2023-04-08] MEDS: DiphenhydrAMINE 25 MG Capsule 50 MG PO (20:17)
[2023-04-08 20:20] VITALS: BP 120/81; PULSE 79; RESP 16; O2SAT 97
== END 2023-04-08 20:23 | disposition home or self-care (01) ==
PROVIDERS: Emergency Provider Emergency Medicine; PCP Family Medicine; Visit Provider Emergency Medicine
DX: H61.22 Impacted cerumen, left ear (principal); E11.9 Type 2 diabetes mellitus without complications; I25.10 Atherosclerotic heart disease of native coronary artery without angina pectoris; F17.210 Nicotine dependence, cigarettes, uncomplicated; I25.2 Old myocardial infarction; Z86.73 Personal history of transient ischemic attack (TIA), and cerebral infarction without residual deficits; Z79.84 Long term (current) use of oral hypoglycemic drugs; Z79.82 Long term (current) use of aspirin; Z79.899 Other long term (current) drug therapy
CPT/HCPCS: 99283

== ENCOUNTER 2025-01-07 12:16 | Emergency (ER) | payer MEDICARE, MEDICAID, SELFPAY ==
[2025-01-07 12:21] VITALS: BP 127/89; PULSE 100; RESP 18; TEMP 36.5; O2SAT 95; BMI 30.8
--- NOTE | 2025-01-07 13:04 | EX.ED.DYSGE1 ---
HPI History of Present Illness Chief Complaint: Hyperglycemia Informant: patient and family Narrative Narrative: 44-year-old male with a history of schizophrenia and diabetes presenting to the emergency department with the chief complaint of elevated blood sugars. Patient states that about 2 weeks ago he got a monitor to check his blood sugars. Prior to that he really was not checking his blood sugars. So he is noted that they have been in the 300-400 range. His family spoke with his primary care doctor over the weekend and they increased his glipizide to twice a day as well as his metformin to twice a day. Blood sugars are still not come down. Therefore when they spoke with primary care they sent him to emergency. Family also states that for the bout the past 3 weeks he has been sleeping a lot more and sleeping missing meals. With his schizophrenia he was recently placed on Ingrezza about 3 weeks ago. He sees psychiatry in [place]. No reported fevers. [facility] Medical History TIA (transient ischemic attack) Bipolar disorder Depression Diabetes GERD (gastroesophageal reflux disease) Smoker Asthma Sleep apnea Fatty liver Anxiety Myocardial infarct Coronary artery disease Home Medications ?Medication ?Instructions ?Recorded ?Last Taken ?Type nitroglycerin 0.4 mg sublingual 0.4 mg sublingual Q5M PRN Chest 02/20/16 06/17/18 22:15 History tablet Pain albuterol sulfate 90 mcg/actuation 1 - 2 puff inhalation Q4H PRN PRN 06/25/16 06/17/18 10:00 History aerosol inhaler (Ventolin HFA) Congestion aspirin 81 mg chewable tablet 81 mg PO DAILY@0800 06/18/18 01/07/25 History ibuprofen 600 mg tablet 600 mg PO Q6H PRN Pain 06/18/18 Unknown History dulaglutide 4.5 mg/0.5 mL 4.5 mg subcut QWEEK 06/11/21 01/02/25 History subcutaneous pen injector (Trulicity) clonidine HCl 0.1 mg tablet 0.1 mg PO BID 09/20/22 01/07/25 History carbamazepine 200 mg 200 mg PO BID 01/07/25 01/07/25 History tablet,extended release,12 hr glipizide 5 mg tablet, extended 5 mg PO DAILY 01/07/25 01/07/25 History release 24 hr hydroxyzine HCl 50 mg tablet 50 mg PO BID 01/07/25 01/07/25 History metformin 500 mg tablet,extended 500 mg PO DAILY 01/07/25 01/07/25 History release 24 hr omeprazole 40 mg capsule,delayed 40 mg PO DAILY 01/07/25 01/07/25 History release risperidone 3 mg tablet 3 mg PO DAILY 01/07/25 01/07/25 History rosuvastatin 20 mg tablet 20 mg PO QHS 01/07/25 01/06/25 History valbenazine 40 mg capsule 40 mg PO DAILY 01/07/25 01/07/25 History (Ingrezza) venlafaxine 37.5 mg tablet 18.75 mg PO BID 01/07/25 01/07/25 History Allergy/AdvReac Type Severity Reaction Status Date / Time shrimp Allergy Swelling Verified 01/07/25 12:20 adhesive tape (plastic tape) AdvReac Rash Verified 01/07/25 12:20 Iodinated Contrast Media AdvReac Nausea/Vom/ Verified 01/07/25 12:20 (CONTRASTS) Diarrhea Social History household members: spouse housing: house Smoking Status: Current every day smoker tobacco type: cigarettes ROS ROS ED Constitutional Constitutional ED: Denies chills, fever(s) or weight loss Eyes Eyes: Denies change in vision or diplopia ENT ENT ED: Denies ear pain, rhinorrhea or sore throat Cardiovascular Cardiovascular: Denies chest pain, orthopnea, palpitations or racing heartbeat Respiratory/Chest Respiratory/Chest: Denies cough, dyspnea or orthopnea Gastrointestinal Gastrointestinal: Denies abdominal pain, diarrhea, nausea or vomiting Genitourinary Genitourinary ED: Reports urinary frequency; Denies dysuria or hematuria Musculoskeletal Musculoskeletal: Denies arthralgias or myalgias Integumentary Denies abscess or rash Neurologic Neurologic: Reports other Details: Somnolence ; Denies headache(s) or weakness Psychiatric Psychiatric: Denies anxiety, depression, suicidal ideation or suicidal thoughts Endocrine Endocrinology: Reports polydipsia and polyuria; Denies polyphagia Allergic/Immunologic Allergic/Immunologic ED: Denies mouth swelling, tongue swelling or urticaria EXAM Physical Exam Const Vital Signs: 01/07/25 12:21 01/07/25 12:34 01/07/25 13:19 Temperature 97.7 F L Temperature Source Oral Pulse Rate 100 80 Respiratory Rate 18 16 Respiratory Effort Normal Non-Labored Respiratory Pattern Normal Blood Pressure 127/89 H 130/78 H Blood Pressure Mean 101 95 Pulse Ox 95 99 Oxygen Delivery Method Room Air 01/07/25 14:17 Temperature 97.7 F L Temperature Source Pulse Rate 80 Respiratory Rate 16 Respiratory Effort Respiratory Pattern Blood Pressure 130/78 H Blood Pressure Mean 95 Pulse Ox 99 Oxygen Delivery Method Positive well nourished and well developed General Appearance ED: well developed and NAD HEENT Reports normocephalic, head/scalp atraumatic and moist mucous membranes Eyes PERRL and EOMs intact bilaterally Neck no lymphadenopathy, supple and no JVD Resp normal respiratory effort and clear to auscultation bilaterally Cardio regular rate, regular rhythm and no murmurs GI normal to inspection, nondistended, normoactive bowel sounds and non-tender Palpation: soft Back/Spine no CVA tenderness and normal ROM Extremity normal to inspection General Extremety ED: Negative for edema General Extremity: Negative for edema Neuro oriented x3 and CN's II-XII intact bilaterally Sensorium / Orientation: alert Motor Exam: strength 5/5 throughout Psych mental status grossly normal Mood & Affect: Negative for depressed or tearful Skin no rashes or lesions noted and no wounds MDM MDM MDM Narrative Medical decision making narrative: Differential diagnosis includes medication side effect hyperglycemia electrolyte abnormalities dehydration acute kidney injury UTI Patient's hemoglobin noted to be 18.2 which is chronic the elevated for him. He is a 2 to 3 pack/day smoker. Patient's liver enzymes are within normal limits lipase 62. Urinalysis no overt infection. Glucose is 422. Normal potassium sodium noted to be 132. Patient received IV fluids. Would have him increase his metformin to 1000 mg twice a day keep his glipizide at 5 mg twice a day. He tells me he has appointment with his primary care doctor later this week. I would also encourage him to speak with his psychiatrist regarding his somnolence while on Ingrezza which seem to coincide with when he started it. I do suspect that the patient has been significantly hyperglycemic for much longer than 2 weeks and do not feel strongly that he requires admission. Lab Data Labs: Laboratory Results - last 24 hr 01/07/25 01/07/25 12:42 13:10 WBC 11.3 H RBC 6.06 Hgb 18.2 H* Hct 50.4 MCV 83.2 MCH 30.0 MCHC 36.1 H RDW Std Deviation 35.6 RDW Coeff of Enrique 11.8 Plt Count 144 L MPV 11.2 Immature Gran % (Auto) 0.500 Neut % (Auto) 74.9 H Lymph % (Auto) 16.5 L [place] % (Auto) 5.8 Eos % (Auto) 1.5 Baso % (Auto) 0.8 Absolute Neuts (auto) 8.5 H Absolute Lymphs (auto) 1.87 Nucleated RBC % 0 Diff Path Review February foll Sodium 132 L Potassium 4.1 Chloride 96 L Carbon Dioxide 22.3 Anion Gap 13 BUN 16 Creatinine 0.89 Estim Creat Clear Calc 124.03 Est GFR (MDRD) Non-Af 108 BUN/Creatinine Ratio 17.8 Glucose 422 H Calcium 9.3 Total Bilirubin 0.79 Direct Bilirubin 0.31 H AST 20 ALT 29 Alkaline Phosphatase 77 Total Protein 7.2 Albumin 4.4 Globulin 2.9 Lipase 62 Urine Color Yellow Urine Clarity Clear Urine pH 5.0 Ur Specific [place] English 1.015 Urine Protein 15 H Urine Glucose (UA) 1000 H Urine Ketones Negative Urine Occult Blood 25 H Urine Nitrite Negative Urine Bilirubin Negative Urine Urobilinogen Normal Ur Leukocyte Esterase Negative Urine RBC 0 SEEN Urine WBC 0 SEEN Ur Squamous Epith Cells 0 SEEN Urine Bacteria 0 SEEN Urine Mucus 0 SEEN Discharge Plan Triage Chief Complaint: Hyperglycemia ED Provider: Gal Blanton Dx/Rx/DC Orders Clinical Impression: Uncontrolled diabetes mellitus, Somnolence, Medication side effect Prescriptions: No Action nitroglycerin 0.4 MG tablet 0.4 mg sublingual Q5M PRN (Reason: Chest Pain) albuterol sulfate [Ventolin HFA] 1 INHALER inhaler 1 - 2 puff inhalation Q4H PRN PRN (Reason: Congestion) aspirin 81 MG tablet,chewable 81 mg PO DAILY@0800 ibuprofen 600 MG tablet 600 mg PO Q6H PRN (Reason: Pain) Trulicity 4.5 mg/0.5 mL Pen Injector 4.5 mg SUBCUT QWEEK Patient Comments: takes every tue clonidine HCl 0.1 mg tablet 0.1 mg PO BID glipizide 5 mg tablet extended release 24hr 5 mg PO DAILY Rx Instructions: INCREASED TO BID OVER THE WEEKEND BY [facility] [employer] MD hydroxyzine HCl 50 mg tablet 50 mg PO BID Rx Instructions: 1 BID SCHEDULED PLUS 1 DAILY PRN carbamazepine 200 mg tablet extended release 12 hr 200 mg PO BID omeprazole 40 mg capsule,delayed release(DR/EC) 40 mg PO DAILY risperidone 3 mg tablet 3 mg PO DAILY venlafaxine 37.5 mg tablet 18.75 mg PO BID metformin 500 mg tablet extended release 24 hr 500 mg PO DAILY Rx Instructions: INCREASED TO BID OVER THE WEEKEND BY [facility] [employer] rosuvastatin 20 mg tablet 20 mg PO QHS Ingrezza 40 mg capsule 40 mg PO DAILY Primary Care Provider: Tito Morales Referrals: Tito Morales MD [Primary Care Provider] - As soon as possible Activity Restrictions/Additional Instructions: Please contact your psychiatrist and tell them about your excessive sleepiness while on Ingrezza. Please let them know it is affecting your daily habits such as eating For the glipizide continue to take 5 mg twice a day. For the metformin increase that to 1000 mg (2 tablets) twice a day. Please keep your appointment with your primary care doctor. Continue to drink plenty of fluids (water) not or alcohol. Print Language: Polish
[2025-01-07 13:11] LABS: Absolute Lymphocyte Count 1.87 X10^3/uL (0.83-4.51); Absolute Neutrophil Count 8.5 X10^3/uL (2.0-7.7); Basophil# 0.09 X10^3/uL; Basophil% 0.8 % (0-1); Eosinophil# 0.17 X10^3/uL; Eosinophils% 1.5 % (0-5); Hematocrit 50.4 % (40-54); Hemoglobin 18.2 g/dL (13.0-16.5); Lymphocyte # 1.87 X10^3/ul (0.83-4.51); Lymphocyte % 16.5 % (19-41); Mean Corp Hgb Conc 36.1 g/dL (32-36); Mean Corpuscular Volume 83.2 fL (80-94); Mean Platelet Vol. 11.2 fl (6.2-12.0); Monocyte# 0.66 X10^3/uL; Monocyte% 5.8 % (0-10); NRBC Flagged by Analyzer 0 % (0-5); Neutrophil # 8.47 X10^3/uL (2.7-7.7); Neutrophil % 74.9 % (47-70); Platelet Count 144 K/mm3 (150-450); RBC Distribution Width CV 11.8 % (11.6-14.6); RBC Distribution Width SD 35.6 fl (35.1-43.9); Red Blood Count 6.06 M/mm3 (4.6-6.2); White Blood Count 11.3 K/mm3 (4.4-11.0)
[2025-01-07 13:12] LABS: Bacteria 0 SEEN /hpf (None Seen); Mucous, Urine 0 SEEN /hpf (<or=2+); Squamous Epithelial Cells - UA 0 SEEN /hpf (0-5); White Blood Cells 0 SEEN /hpf (0-5)
[2025-01-07 13:14] LABS: Color, Urine Yellow (Yellow); Glucose, Dipstick 1000 mg/dl (Normal); Ketone-Dipstick Negative (Negative); Leukocyte Esterase-Dipstick Negative /ul (Negative); Nitrite-Dipstick Negative (Negative); Occult Blood-Urine 25 /ul (Negative); Protein-Dipstick 15 mg/dl (Negative); Specific Gravity, Urine 1.015 (1.002-1.030); Urine Bilirubin Dipstick Negative (Negative); Urine Clarity Clear (Clear); Urine Urobilinogen Normal (Normal)
[2025-01-07 13:15] LABS: Pathologist Review May foll
[2025-01-07] MEDS: 0.9% Normal Saline (1000mL) 1,000 ML 1000 ML IV (13:16)
[2025-01-07 13:19] VITALS: BP 130/78; PULSE 80; RESP 16; O2SAT 99
[2025-01-07 13:22] LABS: Red Blood Cells-Urine 0 SEEN /hpf (0-5)
[2025-01-07 13:57] LABS: Lipase 62 U/L (13-75)
[2025-01-07 14:07] LABS: AST(SGOT) 20 U/L (<=37); Alanine Aminotransfer ALT/SGPT 29 U/L (<=46); Albumin, Serum 4.4 g/dL (3.5-5.0); Alkaline Phosphatase 77 U/L (40-129); Anion Gap 13 (5-15); BUN 16 mg/dL (4-19); BUN/Creat Ratio 17.8 RATIO (10-20); Bilirubin, Direct 0.31 mg/dL (0.00-0.30); Calcium,Total 9.3 mg/dL (7.6-11.0); Carbon Dioxide 22.3 mmol/L (21.0-32.0); Chloride 96 mmol/L (98-108); Creatinine, Serum 0.89 mg/dL (0.70-1.20); EST Glomerular Filtration Rate 108 (>60); Estimated Creatinine Clearance 124.03 ml/min (50-250); Globulin 2.9 g/dL (2.2-4.2); Glucose 422 mg/dL (70-99); Potassium 4.1 mmol/L (3.3-5.1); Protein, Total 7.2 g/dL (5.9-8.4); Sodium Level 132 mmol/L (133-145); Total Bilirubin 0.79 mg/dL (0.00-1.30)
[2025-01-07 14:17] VITALS: BP 130/78; PULSE 80; RESP 16; TEMP 36.5; O2SAT 99
[2025-01-08 09:36] LABS: Bedside Glucose 416 mg/dL (74-106)
[2025-01-08 09:37] LABS: Bedside Glucose 419 mg/dL (74-106)
== END 2025-01-07 14:26 | disposition home or self-care (01) ==
LOC: ED 13:12
PROVIDERS: Emergency Provider Emergency Medicine; PCP Family Medicine; Referring Provider Emergency Medicine; Visit Provider Emergency Medicine
DX: E11.65 Type 2 diabetes mellitus with hyperglycemia (principal); F20.9 Schizophrenia, unspecified; T44.995A Adverse effect of other drug primarily affecting the autonomic nervous system, initial encounter; I25.10 Atherosclerotic heart disease of native coronary artery without angina pectoris; F17.210 Nicotine dependence, cigarettes, uncomplicated; Z79.82 Long term (current) use of aspirin; Z79.84 Long term (current) use of oral hypoglycemic drugs; Z79.85 Long-term (current) use of injectable non-insulin antidiabetic drugs
CPT/HCPCS: 80048; 80076; 81001; 82962; 83690; 85025; 96360; 99283